=== PATIENT | female | born 1965 | race American Indian/Alaskan Native ===

== ENCOUNTER 2017-04-23 10:19 | Inpatient (IN) | payer MEDICAID ==
[2017-04-23 10:53] LABS: Basophils % (Auto) 0.7 % (0.0-1.8); Eosinophils % (Auto) 2.3 % (0.0-4.3); Hematocrit 40.5 % (30.3-42.9); Hemoglobin 13.4 gm/dl (10.1-14.3); Mean Corpuscular HGB Conc 33 % (30-34); Mean Corpuscular Hemoglobin 27 pg (28-32); Mean Corpuscular Volume 82 fl (79-97); Platelet Count 260 K/mm3 (140-440); Red Blood Count 4.91 M/mm3 (3.65-5.03); Red Cell Distribution Width 14.3 % (13.2-15.2)
[2017-04-23 11:13] LABS: Alanine Aminotransferase 16 units/L (7-56); Albumin 3.8 g/dL (3.9-5); Albumin/Globulin Ratio 1.1 %; Alkaline Phosphatase 81 units/L (35-129); Amylase 58 units/L (27-131); Anion Gap 20 mmol/L; Blood Urea Nitrogen 15 mg/dL (7-17); Calcium 9.4 mg/dL (8.4-10.2); Carbon Dioxide 22 mmol/L (22-30); Chloride 99.3 mmol/L (98-107); Glucose 126 mg/dL (65-100); Lipase 58 units/L (13-60); Potassium 3.8 mmol/L (3.6-5.0); Sodium 137 mmol/L (137-145); Total Protein 7.3 g/dL (6.3-8.2)
[2017-04-23 11:17] LABS: Bilirubin,Direct < 0.2 mg/dL (0-0.2)
[2017-04-23 12:38] LABS: Bilirubin,Urine NEG (Negative); Blood,Urine SM (Negative); Ketones,Urine NEG (Negative); Leukocyte Esterase,Urine NEG (Negative); Mucus,Urine FEW /HPF; Nitrite,Urine NEG (Negative); Protein,Urine <15 mg/dL mg/dL (Negative); Urobilinogen,Urine < 2.0 mg/dL (<2.0)
--- NOTE | 2017-04-23 14:55 | Emergency Department Report ---
ED Abdominal Pain HPI - General Chief Complaint: Abdominal Pain Stated Complaint: CHEST PAIN Time Seen by Provider: 04/23/17 14:49 Source: patient Mode of arrival: Ambulatory Limitations: No Limitations - History of Present Illness Initial Comments: The patient complains of recurrent epigastric pain. She also states she says she has had difficulty in swallowing. She has had previous endoscopies showing gastritis and esophagitis. She has had a previous ultrasound at this facility 2015. The report specifically states that the patient has multiple gallstones and a dilated common bile duct without choledocholithiasis. Patient has never followed up with a surgeon. She states that she is nauseated but has not been vomiting. Has not been any signs of GI bleeding nor fever or chills. MD Complaint: abdominal pain -: Gradual Location: epigastric Radiation: none Migration to: no migration Severity: moderate Severity scale (0 -10): 7 Quality: aching Consistency: constant Improves With: nothing Worsens With: nothing Associated Symptoms: denies other symptoms, nausea. denies: vomiting, diarrhea , fever, chills, constipation, dysuria, hematemesis, hematochezia - Related Data Home Medications Medication Instructions Recorded Confirmed Last Taken Colchicine 0.6 mg PO DAILY 04/23/17 04/23/17 Unknown Simvastatin [Zocor TAB] 20 mg PO QHS 04/23/17 04/23/17 Unknown Valsartan [Diovan] 160 mg PO QDAY 04/23/17 04/23/17 Unknown Allergies Allergy/AdvReac Type Severity Reaction Status Date / Time tramadol Allergy Shortness Verified 08/11/15 09:50 of Breath ED Review of Systems ROS: Stated complaint: CHEST PAIN Other details as noted in HPI Constitutional: denies: chills, fever Eyes: denies: eye pain, eye discharge, vision change ENT: denies: ear pain, throat pain Respiratory: denies: cough, shortness of breath, wheezing Cardiovascular: denies: chest pain, palpitations Endocrine: no symptoms reported Gastrointestinal: abdominal pain, nausea. denies: diarrhea Genitourinary: denies: urgency, dysuria, discharge Musculoskeletal: denies: back pain, joint swelling, arthralgia Skin: denies: rash, lesions Neurological: denies: headache, weakness, paresthesias Psychiatric: denies: anxiety, depression Hematological/Lymphatic: denies: easy bleeding, easy bruising ED Past Medical Hx - Past Medical History Previous Medical History?: Yes Hx Hypertension: Yes Hx GERD: Yes Hx Renal Disease: No Hx Arthritis: Yes Hx Headaches / Migraines: Yes (MIGRAINES) Additional medical history: hx of pancreatitis - Surgical History Past Surgical History?: Yes Additional Surgical History: abdominal sx 1999. x2 - Social History Smoking Status: Never Smoker Substance Use Type: None, Alcohol - Medications Home Medications: Home Medications Medication Instructions Recorded Confirmed Last Taken Type Colchicine 0.6 mg PO DAILY 04/23/17 04/23/17 Unknown History Simvastatin [Zocor TAB] 20 mg PO QHS 04/23/17 04/23/17 Unknown History Valsartan [Diovan] 160 mg PO QDAY 04/23/17 04/23/17 Unknown History ED Physical Exam - General Limitations: No Limitations General appearance: alert, in no apparent distress - Head Head exam: Present: atraumatic, normocephalic - Eye Eye exam: Present: normal appearance - ENT ENT exam: Present: normal exam, mucous membranes moist - Neck Neck exam: Present: normal inspection. Absent: tenderness, meningismus - Respiratory Respiratory exam: Present: normal lung sounds bilaterally. Absent: respiratory distress - Cardiovascular Cardiovascular Exam: Present: regular rate, normal rhythm. Absent: systolic murmur, diastolic murmur, rubs, gallop - GI/Abdominal GI/Abdominal exam: Present: soft, tenderness (tenderness in the epigastric area and somewhat towards the right upper quadrant. There is no grossly positive Ellis's), guarding (Some voluntary guarding is noted), normal bowel sounds. Absent: distended, rebound, rigid - Extremities Exam Extremities exam: Present: normal inspection - Back Exam Back exam: Present: normal inspection - Neurological Exam Neurological exam: Present: alert, oriented X3, CN II-XII intact. Absent: motor sensory deficit - Psychiatric Psychiatric exam: Present: normal affect, anxious - Skin Skin exam: Present: warm, dry, intact, normal color. Absent: rash ED Course Vital Signs 04/23/17 04/23/17 04/23/17 10:33 12:37 12:47 Temperature 98.5 F Pulse Rate 85 73 Respiratory 17 Rate Blood Pressure 145/87 Blood Pressure 106/72 [Right] O2 Sat by Pulse 100 97 99 Oximetry 04/23/17 04/23/17 04/23/17 13:00 13:30 14:00 Temperature Pulse Rate Respiratory Rate Blood Pressure 122/65 118/66 115/73 Blood Pressure [Right] O2 Sat by Pulse 95 97 97 Oximetry 04/23/17 04/23/17 04/23/17 14:30 15:45 16:15 Temperature Pulse Rate Respiratory 18 18 Rate Blood Pressure 131/70 Blood Pressure [Right] O2 Sat by Pulse 97 Oximetry 04/23/17 17:09 Temperature Pulse Rate 70 Respiratory 18 Rate Blood Pressure Blood Pressure 126/84 [Right] O2 Sat by Pulse 97 Oximetry - Reevaluation(s) Reevaluation #1: The patient was referred to Dr. Vega for evaluation. The ultrasound report was pending at that time. Dr. Vega mentioned the value of a HIDA scan which I have ordered for him. He saw the patient and admitted her to the hospital for further evaluation. Apparently there is a discrepancy between the 2006 ultrasound showing multiple gallstones and the normal reading at this time. I spoke to the [facility] radiologist concerning this. I gave them Dr. Vega's number. She stated that she would review the prior report and get back to Gary and with her opinion regarding the discrepancy. In any case the patient is admitted for her acute abdominal pain pending further evaluation by the surgeon. 04/23/17 18:19 ED Medical Decision Making - Lab Data Result diagrams: 04/23/17 10:40 04/23/17 10:40 Laboratory Results - last 24 hr 04/23/17 04/23/17 04/23/17 10:40 10:40 10:44 WBC 7.0 RBC 4.91 Hgb 13.4 Hct 40.5 MCV 82 MCH 27 L MCHC 33 RDW 14.3 Plt Count 260 Lymph % (Auto) 38.8 H [place] % (Auto) 7.1 Eos % (Auto) 2.3 Baso % (Auto) 0.7 Lymph # 2.7 [place] # 0.5 Eos # 0.2 Baso # 0.1 Seg Neutrophils % 51.1 Seg Neutrophils # 3.6 Sodium 137 Potassium 3.8 Chloride 99.3 Carbon Dioxide 22 Anion Gap 20 BUN 15 Creatinine 1.0 Estimated GFR > 60 BUN/Creatinine Ratio 15.00 Glucose 126 H Calcium 9.4 Total Bilirubin 0.20 Direct Bilirubin < 0.2 AST 15 ALT 16 Alkaline Phosphatase 81 Troponin T < 0.010 Total Protein 7.3 Albumin 3.8 L Albumin/Globulin Ratio 1.1 Amylase 58 Lipase 58 Urine Color Urine Turbidity Urine pH Ur Specific [place] Urine Protein Urine Glucose (UA) Urine Ketones Urine Blood Urine Nitrite Urine Bilirubin Urine Urobilinogen Ur Leukocyte Esterase Urine WBC (Auto) Urine RBC (Auto) U Epithel Cells (Auto) Urine Mucus 04/23/17 12:30 WBC RBC Hgb Hct MCV MCH MCHC RDW Plt Count Lymph % (Auto) [place] % (Auto) Eos % (Auto) Baso % (Auto) Lymph # [place] # Eos # Baso # Seg Neutrophils % Seg Neutrophils # Sodium Potassium Chloride Carbon Dioxide Anion Gap BUN Creatinine Estimated GFR BUN/Creatinine Ratio Glucose Calcium Total Bilirubin Direct Bilirubin AST ALT Alkaline Phosphatase Troponin T Total Protein Albumin Albumin/Globulin Ratio Amylase Lipase Urine Color Yellow Urine Turbidity Clear Urine pH 5.0 Ur Specific [place] 1.023 Urine Protein <15 mg/dl Urine Glucose (UA) Neg Urine Ketones Neg Urine Blood Sm Urine Nitrite Neg Urine Bilirubin Neg Urine Urobilinogen < 2.0 Ur Leukocyte Esterase Neg Urine WBC (Auto) 2.0 Urine RBC (Auto) 4.0 U Epithel Cells (Auto) 2.0 Urine Mucus Few Critical care attestation.: If time is entered above; I have spent that time in minutes in the direct care of this critically ill patient, excluding procedure time. ED Disposition Clinical Impression: Acute abdominal pain Disposition: OP ADMIT IP TO THIS HOSP Is pt being admited?: Yes Does the pt Need Aspirin: No Condition: Stable Time of Disposition: 18:30
[2017-04-23] MEDS ORDERED: ZOFRAN IV ONE (15:14)
[2017-04-23] MEDS ORDERED: MORPHINE IV ONE (15:14)
[2017-04-23] MEDS ORDERED: PEPCID IV ONE (15:15)
[2017-04-23] MEDS ORDERED: NACL 0.9% 1000 ML 1,000 ML IV ONE (15:16)
--- NOTE | 2017-04-23 16:40 | Ultrasound Report ---
FINAL REPORT EXAM: US ABDOMEN LIMITED HISTORY: ABD pain biliary colic? TECHNIQUE: Sonography of the right upper quadrant abdomen was performed. PRIORS: 03/10/2016 FINDINGS: No focal liver lesions are seen. There is no intra- or extrahepatic biliary dilatation. CBD is 6 mm. The gallbladder is normal - without cholelithiais, wall thickening, or pericholecystic fluid. For the visualized pancreas is unremarkable. There is no right hydronephrosis. IMPRESSION: Unremarkable ultrasound of the right upper quadrant.
[2017-04-23] MEDS ORDERED: ZOSYN/NS 4.5GM/100ML 4.5 GM/100 ML VIAL IV ONE (18:00)
--- NOTE | 2017-04-23 18:40 | History and Physical Report ---
HISTORY OF PRESENT ILLNESS: This patient was seen in the Emergency Room today because of severe pain to the epigastric area with severe nausea, but no vomiting. She related to me that she had the same about ____ ago, she was seen here and she was found to have stones in the gallbladder. For some reason, she did not pursue that further and this time, the pain was much worse. As mentioned above, she has nausea, but no vomiting. The pain was well localized in the mid upper epigastric area, more to the right side. She never had surgery before. I believe she had 2 sections. The patient does not smoke nor does she drink alcohol. She works ____. PHYSICAL EXAMINATION: HEAD AND EYE: Negative. CHEST: Clear. HEART: Sounds normal. ABDOMEN: Protuberant, soft, benign. Severe tenderness, however, in the mid upper epigastrium to the right side with well localized of the subcostal area of the right side. EXTREMITIES: Showed no significant no edema. IMPRESSION: Gallbladder disease with stones seen on the sonogram. We will need to pursue that on the HIDA scan and I did indicate to her that she would need most probably an operation. We will go from there. In the meantime, we will give her some antibiotics. JOB# [id number] SARAH/WM
[2017-04-23] MEDS ORDERED: HEPARIN SUB-Q ONE (21:46)
[2017-04-23 22:50] LABS: Alanine Aminotransferase 15 units/L (7-56); Albumin 3.7 g/dL (3.9-5); Albumin/Globulin Ratio 1.2 %; Alkaline Phosphatase 71 units/L (35-129); Total Protein 6.9 g/dL (6.3-8.2)
[2017-04-23 22:52] LABS: Bilirubin,Direct < 0.2 mg/dL (0-0.2); Bilirubin,Indirect 0.1 mg/dL
[2017-04-23] MEDS: D5W/0.45% NACL/KCL 20 MEQ 20 MEQ/1,000 ML BAG IV SCH (23:43)
--- NOTE | 2017-04-24 00:51 | Admit Criteria Form ---
Admission Criteria Documentation: ABDOMINAL PAIN Clinical Indications for Admission to Inpatient Care ( alutiiq/check or initial the applicable condition/criteria): Admission is indicated for ANY ONE of the following (1)(2)(3)(4)(5)(6): [ ]I. Surgery needed that cannot be performed on ambulatory basis [ ]II. Peritoneal signs present (eg, rebound tenderness, rigidity) [ ]III. Evaluation requires patient to not eat or drink for extended period ( eg, more than 24 hours). [X]IV. Inpatient admission required[B] rather than observation care (see Abdominal Pain: Observation Care guideline as appropriate) because of ANY ONE of the following(7)(8)(9): [ ] a) Hemodynamic instability [ ]b) Severe pain requiring acute inpatient management [X]c) Identification of etiology or finding that requires inpatient care (eg, aortic dissection, free air,bowel ischemia)(10) [ ]d) Absent bowel sounds with complete ileus (11) [ ]e) Signs of intestinal obstruction[C] [ ]f) Suspected toxic megacolon [ ]g) Severe electrolyte abnormalities requiring inpatient care [ ]h) High fever or infection requiring inpatient admission as indicated by ANY ONE of the following (12)(13): [ ]i) Appropriate outpatient or observation care antimicrobial treatment unavailable, not effective, or not feasible [ ]ii) Documented bacteremia [ ]iii) Temperature greater than 104.9 degrees F (40.5 degrees C) (oral) [ ]iv) Temperature greater than 103.1 degrees F (39.5 degrees C) ( oral) or less than 96.8 degrees F (36 degrees C) (rectal) that does not respond to all emergency treatment measures [ ]i) IV fluid required rather than oral rehydration to replace significant ongoing (eg, for greater than 24 hours) losses (greater than 3 L/m2 per day)(14)(15) [ ]j) Percutaneous or open drainage (eg, abscess, biliary tract) procedures [ ]k) Parenteral nutrition regimen that must be implemented on inpatient basis [ ]l) Other condition, treatment, or monitoring requiring inpatient admission Extended stay beyond goal length of stay may be needed for (1)(3)(4)(10)(16): [ ]a) Surgery (e.g., colectomy, revascularization procedure) [ ]b) Persistent abdominal pain with suspected intra-abdominal process [ ]c) Diagnosed condition requiring continued stay (e.g., pancreatitis, complicated diverticulitis) The original [facility] Provade content created by [facility] has been revised. The portions of the content which have been revised are identified through the use of italic text or in bold, and [facility] has neither reviewed nor approved the modified material.All other unmodified content is copyright [facility]. Please see references footnoted in the original [facility] edition 2017 Admission Criteria Met: Yes
[2017-04-24 06:22] LABS: Alanine Aminotransferase 14 units/L (7-56); Albumin 3.2 g/dL (3.9-5); Alkaline Phosphatase 61 units/L (35-129); Total Protein 6.3 g/dL (6.3-8.2)
[2017-04-24 06:28] LABS: Bilirubin,Direct < 0.2 mg/dL (0-0.2)
[2017-04-24] MEDS ORDERED: KINEVAC IV ONE ×2 (08:54→08:56)
[2017-04-24] MEDS ORDERED: WATER FOR INJ (PF) 10 ML ONE (08:56)
[2017-04-24] MEDS ORDERED: WATER FOR INJ (PF) IV SCH (09:00)
[2017-04-24] MEDS: D5W/0.45% NACL/KCL 20 MEQ 20 MEQ/1,000 ML BAG IV SCH ×2 (10:20→22:16)
--- NOTE | 2017-04-24 10:26 | Nuclear Medicine Report ---
HIDA WITH CCK INDICATION: Right upper quadrant pain x 1 year. Nausea, pain. COMPARISON: None similar. FINDINGS: Dynamic right upper quadrant imaging performed in the anterior projection over 60 minutes following uneventful intravenous administration of 5 mCi of Technetium 99m Choletec. Prompt and homogenous hepatic radiotracer uptake with subsequent washout seen with gallbladder activity noted at 10 minutes and bowel activity seen conclusively at 60 minutes. Subsequently, 2 mcg of cholecystokinin infused intravenously over a period of 3 minutes with patient experiencing pain, though of different intensity. The calculated ejection fraction is 19% (normal greater than 35%). CONCLUSION: Biliary dyskinesia with gallbladder ejection fraction of 19% and patient experiencing different pain characteristic following CCK, as described. Please correlate. Thank you for the opportunity to participate in this patient's care.
[2017-04-24] MEDS ORDERED: MARCAINE 0.5% 30 ML INFILTRATI ONE (12:04)
[2017-04-24] MEDS ORDERED: ZOFRAN IV PRN (12:12)
[2017-04-24] MEDS ORDERED: DILAUDID IV PRN (12:12)
--- NOTE | 2017-04-24 12:14 | Anesthesia Day of Surgery ---
Anesthesia Day of Surgery - Day of Surgery Patient Examined: Yes Patient H&P Reviewed: Yes Patient is NPO: Yes
--- NOTE | 2017-04-24 12:20 | Anesthesia Consultation ---
Anesthesia Consult and Med Hx Date of service: 04/24/17 - Airway Anesthetic Teeth Evaluation: Good, Partials (UPPER) ROM Head & Neck: Adequate Mental/Hyoid Distance: Adequate Mallampati Class: Class II Intubation Access Assessment: Probably Good - Pulmonary Exam CTA: Yes - Cardiac Exam Cardiac Exam: RRR - Pre-Operative Health Status ASA Pre-Surgery Classification: ASA3 Proposed Anesthetic Plan: General - Pulmonary Hx Smoking: No Hx Asthma: No COPD: No Hx Pneumonia: No Hx Sleep Apnea: No - Cardiovascular System Hx Hypertension: Yes Hx Coronary Artery Disease: No Hx Heart Attack/AMI: No Hx Angina: No Hx Valvular Heart Disease: No Hx Peripheral Vascular Disease: No - Central Nervous System CVA: No Hx Back Pain: Yes Hx Psychiatric Problems: No - Endocrine Hx Renal Disease: No (STONES) Hx End Stage Renal Disease: No Hx Cirrhosis: No Hx Insulin Dependent Diabetes: No Hx Hypothyroidism: No Hx Hyperthyroidism: No - Hematic Hx Anemia: No - Other Systems Hx Obesity: Yes (BMI 40) - Additional Comments Anesthesia Medical History Comments: HAD MEMORY LOSS AFTER WHICH SHE SAYS IS ANESTHESIA RELATED
[2017-04-24] MEDS ORDERED: XYLOCAINE MPF 2% ONE (12:25)
[2017-04-24] MEDS ORDERED: ZOFRAN ONE (12:25)
[2017-04-24] MEDS ORDERED: ZEMURON IV ONE (12:25)
[2017-04-24] MEDS ORDERED: SUBLIMAZE ONE (12:26)
[2017-04-24] MEDS ORDERED: DIPRIVAN 10 MG/ML IV ONE (12:26)
[2017-04-24] MEDS ORDERED: VERSED IV NR (13:00)
[2017-04-24] MEDS ORDERED: NACL 0.9% 1000 ML 1,000 ML IV SCH (13:00)
[2017-04-24] MEDS ORDERED: ANCEF/STERILE WATER 2 GM/20 ML IV NR (13:00)
[2017-04-24] MEDS ORDERED: PEPCID IV NR (13:00)
[2017-04-24] MEDS ORDERED: ROBINUL ONE ×2 (13:27→13:47)
[2017-04-24] MEDS ORDERED: NACL 0.9% IR ONE (13:30)
[2017-04-24] MEDS ORDERED: MARCAINE 0.5% INFILTRATI ONE ×2 (13:31)
[2017-04-24] MEDS ORDERED: NEOSTIGMINE ONE (13:47)
[2017-04-24] MEDS ORDERED: DECADRON ONE (13:56)
[2017-04-24] MEDS ORDERED: NEO SYNEPHRINE/NS Syringe(OR USE) IV ONE (14:00)
[2017-04-24] MEDS ORDERED: DILAUDID ONE ×2 (14:01→14:03)
[2017-04-24] MEDS ORDERED: NACL 0.9% 1000 ML 1,000 ML ONE (14:04)
--- NOTE | 2017-04-24 15:47 | Post Anesthesia Evaluation ---
- Post Anesthesia Evaluation Patient Participated: Yes Airway Patent: Yes Stable Respiratory Function: Yes Nausea/Vomiting: No Temp > 96.8F: Yes Pain Manageable: Yes Adequeate Hydration: Yes Anesthesia Complications: No Block Receding Appropriately: Not Applicable Patient on Ventilator: No
[2017-04-24] MEDS ORDERED: AMBIEN PO PRN (20:06)
--- NOTE | 2017-04-24 20:38 | Operative Report ---
PREOPERATIVE DIAGNOSIS: Gallbladder disease with acalculous cholecystitis. POSTOPERATIVE DIAGNOSIS: Gallbladder disease with acalculous cholecystitis. SURGERY: Cholecystectomy, laparoscopic. ANESTHESIA: General. BLOOD LOSS: Minimal. FINDINGS: The patient had a secondary wall of the gallbladder and there was lots of adhesions between it and the surrounding structures. I had to dissect this free. The gallbladder looked edematous to me. It contained lots of bile. I could not see any stones there. DESCRIPTION OF PROCEDURE: With the patient in supine position, prepped and draped in usual fashion, I made an incision in the right upper quadrant for the Veress needle. I was able to introduce CO2 pressure of 15 for which #5 trocar was inserted. Then, with the camera 5, I was able to introduce 3 more trocars under local anesthesia. One in the right upper quadrant, one in the supraumbilical area #5 and #10 in the mid upper epigastrium to the right side. The gallbladder as mentioned above was thick and it had lots of adhesions. These were lysed slowly in the usual fashion where a grasper was applied at its fundus and infundibular area. Then, the remainder of the cystic duct, I was able to isolate the cystic duct and cystic artery. These were small, barely about 1 mm each. These were Endo clipped and transected and the gallbladder was removed in toto using electrocautery in the usual fashion. The gallbladder was then removed via EndoCatch in the usual fashion. We had good hemostasis. The area was then irrigated thoroughly with normal saline. Then, all the trocars were removed, closing the fascia with use of 0 Vicryl [id number] x 2 and the skin with 4-0 Vicryl and a seal, glue. The patient was then transferred to the recovery room in good condition. JOB# [id number] SARAH/WM
[2017-04-24] MEDS: MORPHINE IV PRN (20:48)
[2017-04-24] MEDS: DELTASONE PO SCH (22:16)
[2017-04-24] MEDS: ZOFRAN IV PRN (22:21)
[2017-04-25] MEDS: MORPHINE IV PRN (08:01)
[2017-04-25] MEDS: ZOFRAN IV PRN (08:08)
[2017-04-25 08:51] VITALS: BP 146/84
[2017-04-25] MEDS: DELTASONE PO SCH (09:16)
[2017-04-25 09:26] LABS: Alanine Aminotransferase 47 units/L (7-56); Albumin 3.7 g/dL (3.9-5); Albumin/Globulin Ratio 1.1 %; Alkaline Phosphatase 69 units/L (35-129)
[2017-04-25 09:27] LABS: Bilirubin,Direct < 0.2 mg/dL (0-0.2)
--- NOTE | 2017-04-25 13:39 | Progress Note ---
Subjective Narrative: doing fine home today on phenergan and percocet Objective Vital Signs - 12hr 04/25/17 04/25/17 04/25/17 03:45 08:00 08:01 Temperature 98.2 F 99.2 F Pulse Rate 73 77 Respiratory 20 18 20 Rate Respiratory 20 Rate [Bilateral Abdomen] Blood Pressure 128/76 146/84 O2 Sat by Pulse 96 97 Oximetry 04/25/17 08:31 Temperature Pulse Rate Respiratory 18 Rate Respiratory Rate [Bilateral Abdomen] Blood Pressure O2 Sat by Pulse Oximetry - Labs 04/23/17 10:40 04/23/17 10:40 Diabetes panel 04/25/17 Range/Units 08:39 AST 56 H (5-40) units/L ALT 47 (7-56) units/L Alkaline Phosphatase 69 (35-129) units/L Total Protein 7.0 (6.3-8.2) g/dL Albumin 3.7 L (3.9-5) g/dL Calcium panel 04/25/17 Range/Units 08:39 Albumin 3.7 L (3.9-5) g/dL Adrenal panel 04/25/17 Range/Units 08:39 Total Bilirubin 0.30 (0.1-1.2) mg/dL AST 56 H (5-40) units/L ALT 47 (7-56) units/L Alkaline Phosphatase 69 (35-129) units/L Total Protein 7.0 (6.3-8.2) g/dL Albumin 3.7 L (3.9-5) g/dL
--- NOTE | 2017-04-26 21:36 | Discharge Summary ---
FINAL DIAGNOSES: 1. Acalculous cholecystitis? 2. Esophagitis? HOSPITAL COURSE: This patient was seen in the ER last year ____ because of severe pain throughout the right upper quadrant. She was found to have a stone in the gallbladder last year. At this time, the pain was very severe and prompted her to be seen in the Emergency Room. We had a HIDA scan on her that showed 19% ejection fraction. The patient is on prednisone for rheumatoid arthritis. PHYSICAL EXAMINATION: GENERAL: Well-preserved and short statured black female. She is in pain to the right upper quadrant. HEAD AND NECK: Negative. CHEST: Clear. HEART: Sound normal. ABDOMEN: Showed severe tenderness in the right upper quadrant area. The patient was taken to the operating room the next day where she underwent laparoscopic cholecystectomy. She was found to have gallbladder was with lots of adhesions in the area. Postoperatively, the next day, she was doing fine. At that time, she was discharged home to be seen in my office in 2 weeks, she was given analgesia for pain Vicodin and she is to continue her prednisone at home. ____ path report. JOB# [id number] SARAH/WM
== END 2017-04-25 14:30 | disposition home or self-care (01) | DRG 418 ==
LOC: ED 10:19 → 3A 16:56 → 2B-SURG 19:51 → OBSVTOIN 04-24 12:05
PROVIDERS: ADMIT Surgery; ATTEND Surgery
PROC: 0FT44ZZ Resection of Gallbladder, Percutaneous Endoscopic Approach (ICD-10-PCS; principal; 2017-04-24)
DX: K81.0 Acute cholecystitis (principal); Z68.41 Body mass index [BMI] 40.0-44.9, adult; E66.01 Morbid (severe) obesity due to excess calories; Z88.8 Allergy status to other drugs, medicaments and biological substances; I10 Essential (primary) hypertension; K21.9 Gastro-esophageal reflux disease without esophagitis; M06.9 Rheumatoid arthritis, unspecified; K82.8 Other specified diseases of gallbladder
CPT/HCPCS: 36415; 76705; 78227; 80053; 80074; 81001; 82150; 83690; 84484; 85025; 88304; 93005; 93010; 96361; 96365; 96375; A9537; G0378; J0690; J1100; J1170; J1644; J2270; J2370; J2405; J2543; J2704; J2710; J2805; J3010; J7030; J7512

== ENCOUNTER 2018-08-31 23:05 | Emergency (ER) | payer MEDICAID, SELFPAY ==
--- NOTE | 2018-09-01 | XRay Report ---
FINAL REPORT PROCEDURE: XR FINGER(S) 2+V LT TECHNIQUE: LEFT index finger radiographs, including AP, lateral, and oblique views. HISTORY: jammed left index finger-pain and swelling COMPARISON: No prior studies are available for comparison. FINDINGS: Fracture (s) and/or Dislocation(s): None . Alignment: Normal. Joint space(s): Mild narrowing of the joint spaces. Soft tissues: Normal . Bone mineralization: Normal . Foreign bodies: None . IMPRESSION: No evidence of an acute fracture
--- NOTE | 2018-09-01 07:22 | Emergency Department Report ---
ED Upper Extremity Inj HPI - General Chief Complaint: Extremity Injury, Upper Stated Complaint: FINGER PAIN/SWELLING Time Seen by Provider: 09/01/18 06:50 Source: patient Mode of arrival: Ambulatory Limitations: No Limitations - History of Present Illness Initial Comments: There is a 53-year-old -[place] female who presents for paronychia left index finger states she gotten press on those 2 days ago and hit a nail on the car door pain and throbbing sets R she does not want nail removed I have advised the patient we will attempt a side approach however the paronychia versus felon is not relieved will have to take nail off. pain is 5/10 throbbing aching pain is relieved by nothing pain is exacerbated by palpation and movement. Complaint: Injury to:: left Onset/Timin -: days(s) ( positive) Other Extremity Injury: Fingers: Left (index ) Other Injuries: none (mode) Handedness: right Place: home Severity scale (0 -10): 5 Improves With: none Worsens With: movement of extremity (1), other (palpation ) Context: other (artificial nail gun abdomen was) - Related Data Home Medications Medication Instructions Recorded Confirmed Last Taken Colchicine 0.6 mg PO DAILY 04/23/17 04/23/17 Unknown Simvastatin [Zocor TAB] 20 mg PO QHS 04/23/17 04/23/17 Unknown Valsartan [Diovan] 160 mg PO QDAY 04/23/17 04/23/17 Unknown Previous Rx's Medication Instructions Recorded Last Taken Type Acetaminophen [Tylenol Extra 1,000 mg PO QID PRN #30 tablet 09/01/18 Unknown Rx Strength] Cephalexin [Keflex] 500 mg PO TID 10 Days #30 capsule 09/01/18 Unknown Rx Menthol/Camphor [Beasley Victoria 1 applicatio TP QID PRN #1 tube 09/01/18 Unknown Rx Ointment] Allergies Allergy/AdvReac Type Severity Reaction Status Date / Time tramadol Allergy Shortness Verified 08/11/15 09:50 of Breath hydrocodone AdvReac Shortness Verified 04/24/17 11:37 of Breath NSAIDS (Non-Steroidal AdvReac gi upset Verified 04/24/17 11:37 Anti-Inflamma ED Review of Systems ROS: Stated complaint: FINGER PAIN/SWELLING Other details as noted in HPI Constitutional: denies: chills, fever Eyes: denies: eye pain, eye discharge, vision change ENT: denies: ear pain, throat pain Respiratory: denies: cough, shortness of breath, wheezing Cardiovascular: denies: chest pain, palpitations Endocrine: no symptoms reported Gastrointestinal: denies: abdominal pain, nausea, diarrhea Genitourinary: denies: urgency, dysuria, discharge Musculoskeletal: joint swelling, other (left index paronychia ) Skin: denies: rash, lesions Neurological: denies: headache, weakness, paresthesias Psychiatric: denies: anxiety, depression Hematological/Lymphatic: denies: easy bleeding, easy bruising ED Past Medical Hx - Past Medical History Previous Medical History?: Yes Hx Hypertension: Yes Hx Heart Attack/AMI: No Hx Congestive Heart Failure: No Hx Diabetes: No Hx Deep Vein Thrombosis: No Hx Pulmonary Embolism: No Hx GERD: Yes Hx Renal Disease: No (STONES) Hx Arthritis: Yes Hx Headaches / Migraines: Yes (MIGRAINES) Hx Asthma: No Hx COPD: No Hx Dementia: No Additional medical history: hx of pancreatitis - Surgical History Past Surgical History?: Yes Hx Open Heart Surgery: No Hx Breast Surgery: No Additional Surgical History: abdominal sx 1999. x2 - Social History Smoking Status: Never Smoker Substance Use Type: Alcohol - Medications Home Medications: Home Medications Medication Instructions Recorded Confirmed Last Taken Type Colchicine 0.6 mg PO DAILY 04/23/17 04/23/17 Unknown History Simvastatin [Zocor TAB] 20 mg PO QHS 04/23/17 04/23/17 Unknown History Valsartan [Diovan] 160 mg PO QDAY 04/23/17 04/23/17 Unknown History Acetaminophen [Tylenol Extra 1,000 mg PO QID PRN #30 tablet 09/01/18 Unknown Rx Strength] Cephalexin [Keflex] 500 mg PO TID 10 Days #30 capsule 09/01/18 Unknown Rx Menthol/Camphor [Beasley Victoria 1 applicatio TP QID PRN #1 tube 09/01/18 Unknown Rx Ointment] ED Physical Exam - General Limitations: No Limitations General appearance: alert, in no apparent distress - Head Head exam: Present: atraumatic, normocephalic - Eye Eye exam: Present: normal appearance - ENT ENT exam: Present: mucous membranes moist. Absent: normal exam - Neck Neck exam: Present: normal inspection - Respiratory Respiratory exam: Present: normal lung sounds bilaterally. Absent: respiratory distress - Cardiovascular Cardiovascular Exam: Present: regular rate, normal rhythm. Absent: systolic m urmur, diastolic murmur, rubs, gallop - GI/Abdominal GI/Abdominal exam: Present: soft, normal bowel sounds - Rectal Rectal exam: Present: deferred - Extremities Exam Extremities exam: Present: full ROM, tenderness (left index distal erythema swelling ), normal capillary refill, joint swelling - Expanded Upper Extremity Exam Left Hand Wrist exam: Present: tenderness, swelling, erythema, other (paronychia ) Neuro motor exam: Present: wrist extension intact, thumb opposition intact, thumb IP flexion intact ( is here as), thumb adduction intact ( those a lot again is), fingers 2-5 abduction intact Neurosensory exam: Present: 2-point discrimination, radial nerve intact, ulnar nerve intact, median nerve intact (A Catrina is) Vascular: Present: normal capillary refill, radial pulse, brachial pulse, ulnar pulse. Absent: pulse deficit radial art, pulse deficit ulnar art, pulse deficit brachial art - Back Exam Back exam: Present: normal inspection, full ROM, tenderness - Neurological Exam Neurological exam: Present: alert, oriented X3, CN II-XII intact, normal gait, reflexes normal - Psychiatric Psychiatric exam: Present: normal affect, normal mood - Skin Skin exam: Present: warm, dry, normal color. Absent: rash ED Course Vital Signs 08/31/18 09/01/18 23:29 05:37 Temperature 98.8 F 98.1 F Pulse Rate 79 71 Respiratory 20 20 Rate Blood Pressure 159/89 Blood Pressure 163/95 [Right] O2 Sat by Pulse 94 99 Oximetry - I & D Left Finger Type of Procedure: Simple Site: index finger paroncychia Blade Size: 11 I & D Procedure: betadine prep Progress: Left index finger paronychia . The patient anesthesia 1% lidocaine plain . Digital block is a 11 blade subcutaneous purulent output moderate moderate amount irrigated saline solution cleaned with Betadine prep and sterile dressing applied all bleeding is controlled pressure throbbing is relieved patient tolerated procedures were minimal distress patient given wound care instructions was understanding and agreement with same Critical care attestation.: If time is entered above; I have spent that time in minutes in the direct care of this critically ill patient, excluding procedure time. ED Disposition Clinical Impression: Paronychia of left index finger Disposition: DC- TO HOME OR SELFCARE Is pt being admited?: No Does the pt Need Aspirin: No Condition: Stable Instructions: Paronychia (ED) Prescriptions: Acetaminophen [Tylenol Extra Strength] 1,000 mg PO QID PRN #30 tablet PRN Reason: pain Cephalexin [Keflex] 500 mg PO TID 10 Days #30 capsule Menthol/Camphor [Beasley Victoria Ointment] 1 applicatio TP QID PRN #1 tube PRN Reason: pain Referrals: ABIGAIL DIXON MD [Primary Care Provider] - 3-5 Days Forms: Work/School Release Form(ED) Time of Disposition: 07:30
[2018-09-01 07:54] VITALS: BP 170/98
== END 2018-09-01 08:03 | disposition home or self-care (01) ==
LOC: ED 23:05
DX: L03.012 Cellulitis of left finger (principal); I10 Essential (primary) hypertension; K21.9 Gastro-esophageal reflux disease without esophagitis; M19.90 Unspecified osteoarthritis, unspecified site; G43.909 Migraine, unspecified, not intractable, without status migrainosus; Z88.6 Allergy status to analgesic agent; Z88.8 Allergy status to other drugs, medicaments and biological substances
CPT/HCPCS: 99283

== ENCOUNTER 2018-11-28 09:13 | Outpatient (CLI) | payer MEDICAID ==
--- NOTE | 2018-11-29 08:28 | Vascular Lab Report ---
PROCEDURE: VL RENAL VASCULATURE TECHNIQUE: Renal artery duplex Doppler ultrasound. Grayscale, color flow and spectral waveform imagi ng performed. HISTORY: BILATERAL RENAL ARTERY SCAN COMPARISON: None FINDINGS: Examination limited and technically difficult due to patient body habitus. Right kidney measures 10.3 cm length. Left kidney measures 10.4 cm length. Aortic flow velocity is 85-99 cm/s. Right renal artery flow velocities are not elevated relative to aortic flow velocities. The renal aor tic ratio on the right is normal, 1.0. Intrarenal resistive index acceptable at 0.71. Left renal artery flow velocities are also not elevated. Left renal aortic ratio is normal, 0.65. Int rarenal resistive index is normal, 0.53. Renal veins are patent bilaterally. IMPRESSION: No Doppler evidence of renal artery stenosis. This document is electronically signed by Rebecca Jones MD., November 29 2018 08:26:17 AM ET
== END 2018-11-28 09:14 | disposition home or self-care (01) ==
LOC: VAS 09:13
PROVIDERS: ATTEND Internal Medicine
DX: I10 Essential (primary) hypertension (principal); E66.9 Obesity, unspecified; K21.9 Gastro-esophageal reflux disease without esophagitis; M19.90 Unspecified osteoarthritis, unspecified site
CPT/HCPCS: 93975

== ENCOUNTER 2019-11-07 09:50 | Emergency (ER) | payer MEDICAID ==
--- NOTE | 2019-11-07 10:54 | Event Note ---
ED Screening Note Date of service: 11/07/19 ED Screening Note: 54 y/o female comes for worsening chest pain. Feels like pressure. Was dx yesterday with pneumonia and placed on meds. This initial assessment/diagnostic orders/clinical plan/treatment(s) is/are subject to change based on patients health status, clinical progression and re- assessment by fellow clinical providers in the ED. Further treatment and workup at subsequent clinical providers discretion. Patient/guardian urged not to elope from the ED as their condition may be serious if not clinically assessed and managed. Initial orders include:
[2019-11-07 11:00] VITALS: BP 137/78
--- NOTE | 2019-11-07 11:17 | XRay Report ---
CHEST 2 VIEWS INDICATION / CLINICAL INFORMATION: sob,cough and rales. COMPARISON: 10/30/2015 FINDINGS: SUPPORT DEVICES: None. HEART / MEDIASTINUM: No significant abnormality. LUNGS / PLEURA: There are bibasilar airspace opacities right greater than left. Upper lung zones are clear. .No pneumothorax. There is mild apical pleural thickening on both sides. ADDITIONAL FINDINGS: No significant additional findings. IMPRESSION: There is bibasilar airspace disease right greater than left. This could represent atelectasis or pneu monia. Signer Name: Amos Kwan MD Signed: 11/07/2019 11:12 AM Workstation Name: [id number]
[2019-11-07 11:59] LABS: Basophils % (Auto) 0.3 % (0.0-1.8); Hematocrit 41.9 % (30.3-42.9); Hemoglobin 13.6 gm/dl (10.1-14.3); Lymphocytes % (Auto) 16.7 % (13.4-35.0); Mean Corpuscular HGB Conc 32 % (30-34); Mean Corpuscular Volume 83 fl (79-97); Monocytes # (Auto) 0.6 K/mm3 (0.0-0.8); Monocytes % (Auto) 9.7 % (0.0-7.3); Platelet Count 315 K/mm3 (140-440); Red Blood Count 5.05 M/mm3 (3.65-5.03); Red Cell Distribution Width 13.6 % (13.2-15.2)
[2019-11-07 12:25] LABS: Alanine Aminotransferase 18 units/L (7-56); Albumin 3.9 g/dL (3.9-5); BUN/Creatinine Ratio 20; Blood Urea Nitrogen 16 mg/dL (7-17); Calcium 9.7 mg/dL (8.4-10.2); Hemolysis Index 0
[2019-11-07] MEDS ORDERED: SODIUM CHLORIDE 0.9% 1000 ML 1,000 ML IV ONE (12:30)
[2019-11-07] MEDS ORDERED: ALBUTEROL 2.5 MG/3 ML NEBU IH ONE (12:30)
--- NOTE | 2019-11-07 12:40 | Emergency Department Report ---
ED General Adult HPI - General Chief complaint: Chest Pain Stated complaint: CP/SOB/WEAKNESS Time Seen by Provider: 11/07/19 10:49 Source: patient Mode of arrival: Ambulatory Limitations: No Limitations - History of Present Illness Initial comments: 54 y/o female comes for worsening chest pain. Feels like pressure. Was dx yesterday with pneumonia and placed on meds. Patient reports that she was clinically diagnosed with pneumonia by her primary care provider and was placed on medication. Patient states that she still has heaviness in her chest. Patient reports he has a history of diabetes. Onset/Timin -: week(s) Location: chest Severity scale (0 -10): 6 Quality: other (Pressure) Consistency: constant Improves with: none Worsens with: none Associated Symptoms: shortness of breath - Related Data Home Medications Medication Instructions Recorded Confirmed Last Taken Simvastatin (Nf) [Zocor TAB] 20 mg PO QHS 04/23/17 11/07/19 Unknown Cholecalciferol (Vitamin D3) 50,000 unit PO QWEEK 11/07/19 11/07/19 Unknown [Vitamin D3 50,000UNIT CAP] Hydralazine HCl 50 mg PO QDAY 11/07/19 11/07/19 Unknown amLODIPine [Norvasc] 10 mg PO DAILY 11/07/19 11/07/19 Unknown levoFLOXacin [Levaquin] 750 mg PO QDAY 11/07/19 11/07/19 Unknown metFORMIN [Glucophage] 500 mg PO BID 11/07/19 11/07/19 Unknown methylPREDNISolone [Medrol 4MG 4 mg PO QDAY 11/07/19 11/07/19 Unknown DOSEPAK (21 tabs)] raNITIdine HCl [Zantac] 300 mg PO QDAY 11/07/19 11/07/19 Unknown Allergies Allergy/AdvReac Type Severity Reaction Status Date / Time tramadol Allergy Shortness Verified 08/11/15 09:50 of Breath hydrocodone AdvReac Shortness Verified 04/24/17 11:37 of Breath NSAIDS (Non-Steroidal AdvReac gi upset Verified 04/24/17 11:37 Anti-Inflamma ED Review of Systems ROS: Stated complaint: CP/SOB/WEAKNESS Other details as noted in HPI Comment: All other systems reviewed and negative ED Past Medical Hx - Past Medical History Hx Hypertension: Yes Hx Heart Attack/AMI: No Hx Congestive Heart Failure: No Hx Diabetes: No Hx Deep Vein Thrombosis: No Hx Pulmonary Embolism: No Hx GERD: Yes Hx Renal Disease: No (STONES) Hx Arthritis: Yes Hx Headaches / Migraines: Yes (MIGRAINES) Hx Asthma: No Hx COPD: No Hx Dementia: No Additional medical history: hx of pancreatitis - Surgical History Hx Open Heart Surgery: No Hx Breast Surgery: No Additional Surgical History: abdominal sx 1999. x2 - Social History Smoking Status: Never Smoker Substance Use Type: Alcohol - Medications Home Medications: Home Medications Medication Instructions Recorded Confirmed Last Taken Type Simvastatin (Nf) [Zocor TAB] 20 mg PO QHS 04/23/17 11/07/19 Unknown History Cholecalciferol (Vitamin D3) 50,000 unit PO QWEEK 11/07/19 11/07/19 Unknown History [Vitamin D3 50,000UNIT CAP] Hydralazine HCl 50 mg PO QDAY 11/07/19 11/07/19 Unknown History amLODIPine [Norvasc] 10 mg PO DAILY 11/07/19 11/07/19 Unknown History levoFLOXacin [Levaquin] 750 mg PO QDAY 11/07/19 11/07/19 Unknown History metFORMIN [Glucophage] 500 mg PO BID 11/07/19 11/07/19 Unknown History methylPREDNISolone [Medrol 4MG 4 mg PO QDAY 11/07/19 11/07/19 Unknown History DOSEPAK (21 tabs)] raNITIdine HCl [Zantac] 300 mg PO QDAY 11/07/19 11/07/19 Unknown History ED Physical Exam - General Limitations: No Limitations General appearance: alert, in no apparent distress - Head Head exam: Present: atraumatic, normocephalic - Eye Eye exam: Present: normal appearance - ENT ENT exam: Present: mucous membranes moist - Neck Neck exam: Present: normal inspection - Respiratory Respiratory exam: Present: normal lung sounds bilaterally. Absent: respiratory distress - Cardiovascular Cardiovascular Exam: Present: regular rate, normal rhythm. Absent: systolic murmur, diastolic murmur, rubs, gallop - GI/Abdominal GI/Abdominal exam: Present: soft, normal bowel sounds - Extremities Exam Extremities exam: Present: normal inspection - Back Exam Back exam: Present: normal inspection - Neurological Exam Neurological exam: Present: alert, oriented X3 - Psychiatric Psychiatric exam: Present: normal affect, normal mood - Skin Skin exam: Present: warm, dry, intact, normal color. Absent: rash ED Course Vital Signs 11/07/19 11/07/19 10:58 13:29 Temperature 98.4 F Pulse Rate 96 H Pulse Rate [ 79 Anterior Bilateral Throughout] Respiratory 22 Rate Respiratory 18 Rate [Anterior Bilateral Throughout] Blood Pressure 137/78 O2 Sat by Pulse 96 Oximetry - Reevaluation(s) Reevaluation #1: 11/07/19 15:13 Patient reports she feels much better after having her breathing treatment and medication. ED Medical Decision Making - Lab Data Result diagrams: 11/07/19 11:40 11/07/19 11:40 - Radiology Data Radiology results: report reviewed Patient: KD CARMONA MR# : [id number] : 1965 Acct:[id number] Age/Sex: 54 / F ADM Date: 11/07/19 Loc: ED Attending Dr: Ordering Physician: AYALA JOHNSON Date of Service: 11/07/19 Procedure(s): XR chest routine 2V Accession Number(s): [id number] cc: AYALA JOHNSON Fluoro Time In Minutes: CHEST 2 VIEWS INDICATION / CLINICAL INFORMATION: sob,cough and rales. COMPARISON: 10/30/2015 FINDINGS: SUPPORT DEVICES: None. HEART / MEDIASTINUM: No significant abnormality. LUNGS / PLEURA: There are bibasilar airspace opacities right greater than left. Upper lung zones are clear. .No pneumothorax. There is mild apical pleural thickening on both sides. ADDITIONAL FINDINGS: No significant additional findings. IMPRESSION: There is bibasilar airspace disease right greater than left. This could represent atelectasis or pneumonia. Signer Name: Amos Kwan MD Signed: 11/07/2019 11:12 AM Workstation Name: [id number] Transcribed By: Dictated By: Amos Kwan MD Electronically Authenticated By: Amos Kwan MD Signed Date/Time: 11/07/19 1112 DD/ 1111 TD/TT: - Medical Decision Making 54 y/o female comes for worsening chest pain. Feels like pressure. Was dx yesterday with pneumonia and placed on meds. Patient reports that she was clinically diagnosed with pneumonia by her primary care provider and was placed on medication. Patient states that she still has heaviness in her chest. Patient reports he has a history of diabetes. Chest x-ray was completed shows some basilar opacity versus pneumonia. Patient placed on albuterol nebulizer treatment, azithromycin 500 mg IV and normal saline 1 1 L IV. Patient be discharged home to continue with antibiotics that her primary care provider gave her and instructions to to use her inhaler every 4-6 hours as needed for shortness of breath. Critical care attestation.: If time is entered above; I have spent that time in minutes in the direct care of this critically ill patient, excluding procedure time. ED Disposition Clinical Impression: Pneumonia Disposition: DC- TO HOME OR SELFCARE Is pt being admited?: No Does the pt Need Aspirin: No Condition: Stable Instructions: Bacterial Pneumonia (ED) Additional Instructions: Continue with antibiotics that your primary care provider continue. Use your inhaler as prescribed by your primary care provider. Follow-up with your primary care provider in the next 3 to 5 days. Take ibuprofen and Tylenol for body aches and fever. Referrals: PRIMARY CARE, [Primary Care Provider] - 3-5 Days Forms: Work/School Release Form(ED)
[2019-11-07] MEDS ORDERED: AZITHROMYCIN 500 MG in SODIUM CHLORIDE 0.9% 250ML 250 ML IV ONE (13:01)
== END 2019-11-07 15:16 | disposition home or self-care (01) ==
LOC: ED 09:50
DX: J18.9 Pneumonia, unspecified organism (principal); I10 Essential (primary) hypertension; K21.9 Gastro-esophageal reflux disease without esophagitis; M19.91 Primary osteoarthritis, unspecified site; G43.909 Migraine, unspecified, not intractable, without status migrainosus; Z98.890 Other specified postprocedural states; Z79.899 Other long term (current) drug therapy; Z88.8 Allergy status to other drugs, medicaments and biological substances
CPT/HCPCS: 36415; 71046; 80053; 85025; 93005; 93010; 94640; 96365; 99284; J0456; J7030; J7050; 94644

== ENCOUNTER 2019-12-07 09:12 | Emergency (ER) | payer MEDICAID ==
[2019-12-07] MEDS ORDERED: SODIUM CHLORIDE 0.9% 1000 ML 1,000 ML IV ONE (09:38)
[2019-12-07] MEDS ORDERED: PANTOPRAZOLE 40 MG INJ IV ONE (09:38)
[2019-12-07] MEDS ORDERED: MORPHINE 4 MG/1 ML INJ IV ONE ×2 (09:38→11:19)
[2019-12-07] MEDS ORDERED: ONDANSETRON 4 MG/2 ML INJ IV ONE (09:38)
--- NOTE | 2019-12-07 09:47 | Emergency Department Report ---
ED Abdominal Pain HPI - General Chief Complaint: Abdominal Pain Stated Complaint: ABD PAIN Time Seen by Provider: 12/07/19 09:22 Source: patient Mode of arrival: Ambulatory Limitations: No Limitations - History of Present Illness Initial Comments: Patient is a 54-year-old female who presents the emergency room with a chief complaint of "pancreatitis." She states that she is having epigastric abdominal pain and it feels similar to when she had pancreatitis in the past. Patient states that she experiences the pain whenever she eats. She also has a history of peptic ulcer disease and has seen a GI doctor in the past Dr. Dyer. She has a past surgical history of a cholecystectomy. She denies any nausea, vomiting, diarrhea, fever, urinary symptoms, hematochezia, melena, hematemesis. She states that she believes her pancreatitis is due to medication use. She states she also has a history of diabetes. Patient states the last time she drank alcohol was last week. She states she has an allergy to tramadol, hydrocodone, NSAIDs. - Related Data Home Medications Medication Instructions Recorded Confirmed Last Taken Simvastatin (Nf) [Zocor TAB] 20 mg PO QHS 04/23/17 11/07/19 Unknown Cholecalciferol (Vitamin D3) 50,000 unit PO QWEEK 11/07/19 11/07/19 Unknown [Vitamin D3 50,000UNIT CAP] Hydralazine HCl 50 mg PO QDAY 11/07/19 11/07/19 Unknown amLODIPine [Norvasc] 10 mg PO DAILY 11/07/19 11/07/19 Unknown levoFLOXacin [Levaquin] 750 mg PO QDAY 11/07/19 11/07/19 Unknown metFORMIN [Glucophage] 500 mg PO BID 11/07/19 11/07/19 Unknown methylPREDNISolone [Medrol 4MG 4 mg PO QDAY 11/07/19 11/07/19 Unknown DOSEPAK (21 tabs)] raNITIdine HCl [Zantac] 300 mg PO QDAY 11/07/19 11/07/19 Unknown Previous Rx's Medication Instructions Recorded Last Taken Type Omeprazole 20 mg PO DAILY #30 tablet. 12/07/19 Unknown Rx Sucralfate [Carafate] 1 gm PO ACHS 7 Days #21 tablet 12/07/19 Unknown Rx Allergies Allergy/AdvReac Type Severity Reaction Status Date / Time tramadol Allergy Shortness Verified 12/15/15 09:50 of Breath hydrocodone AdvReac Shortness Verified 04/24/17 11:37 of Breath NSAIDS (Non-Steroidal AdvReac gi upset Verified 04/24/17 11:37 Anti-Inflamma ED Review of Systems ROS: Stated complaint: ABD PAIN Other details as noted in HPI Comment: All other systems reviewed and negative ED Past Medical Hx - Past Medical History Previous Medical History?: Yes Hx Hypertension: Yes Hx Heart Attack/AMI: No Hx Congestive Heart Failure: No Hx Diabetes: No Hx Deep Vein Thrombosis: No Hx Pulmonary Embolism: No Hx GERD: Yes Hx Renal Disease: No (STONES) Hx Arthritis: Yes Hx Headaches / Migraines: Yes (MIGRAINES) Hx Asthma: No Hx COPD: No Hx Dementia: No Additional medical history: hx of pancreatitis - Surgical History Past Surgical History?: Yes Hx Open Heart Surgery: No Hx Breast Surgery: No Additional Surgical History: abdominal sx 1999. x2 - Social History Smoking Status: Never Smoker Substance Use Type: Alcohol, Prescribed - Medications Home Medications: Home Medications Medication Instructions Recorded Confirmed Last Taken Type Simvastatin (Nf) [Zocor TAB] 20 mg PO QHS 04/23/17 11/07/19 Unknown History Cholecalciferol (Vitamin D3) 50,000 unit PO QWEEK 11/07/19 11/07/19 Unknown History [Vitamin D3 50,000UNIT CAP] Hydralazine HCl 50 mg PO QDAY 11/07/19 11/07/19 Unknown History amLODIPine [Norvasc] 10 mg PO DAILY 11/07/19 11/07/19 Unknown History levoFLOXacin [Levaquin] 750 mg PO QDAY 11/07/19 11/07/19 Unknown History metFORMIN [Glucophage] 500 mg PO BID 11/07/19 11/07/19 Unknown History methylPREDNISolone [Medrol 4MG 4 mg PO QDAY 11/07/19 11/07/19 Unknown History DOSEPAK (21 tabs)] raNITIdine HCl [Zantac] 300 mg PO QDAY 11/07/19 11/07/19 Unknown History Omeprazole 20 mg PO DAILY #30 tablet. 12/07/19 Unknown Rx Sucralfate [Carafate] 1 gm PO ACHS 7 Days #21 tablet 12/07/19 Unknown Rx ED Physical Exam - General Limitations: No Limitations General appearance: alert, in no apparent distress - Head Head exam: Present: atraumatic, normocephalic - Eye Eye exam: Present: normal appearance - ENT ENT exam: Present: mucous membranes moist - Respiratory Respiratory exam: Present: normal lung sounds bilaterally. Absent: respiratory distress, wheezes, rales, rhonchi, stridor, chest wall tenderness, accessory muscle use, decreased breath sounds, prolonged expiratory - Cardiovascular Cardiovascular Exam: Present: regular rate, normal rhythm, normal heart sounds. Absent: systolic murmur, diastolic murmur, rubs, gallop - GI/Abdominal GI/Abdominal exam: Present: soft, tenderness (epigastric, LUQ), normal bowel sounds. Absent: distended, guarding, rebound, rigid - Neurological Exam Neurological exam: Present: alert, oriented X3 - Psychiatric Psychiatric exam: Present: normal affect, normal mood - Skin Skin exam: Present: warm, dry, intact ED Course Vital Signs 12/07/19 12/07/19 12/07/19 09:14 09:35 11:23 Temperature 98.4 F Pulse Rate 79 Respiratory 18 18 18 Rate Blood Pressure 143/86 O2 Sat by Pulse 97 99 Oximetry 12/07/19 12/07/19 11:39 12:29 Temperature Pulse Rate 72 Respiratory 18 Rate Blood Pressure 150/101 O2 Sat by Pulse 97 Oximetry ED Medical Decision Making - Lab Data Result diagrams: 12/07/19 09:55 12/07/19 09:55 Lab Results 12/07/19 12/07/19 12/07/19 Range/Units 09:25 09:31 09:55 WBC 7.1 (4.5-11.0) K/mm3 RBC 4.89 (3.65-5.03) M/mm3 Hgb 13.5 (10.1-14.3) gm/dl Hct 40.9 (30.3-42.9) % MCV 84 (79-97) fl MCH 28 (28-32) pg MCHC 33 (30-34) % RDW 14.7 (13.2-15.2) % Plt Count 302 (140-440) K/mm3 Lymph % (Auto) 31.9 (13.4-35.0) % Parke % (Auto) 7.1 (0.0-7.3) % Eos % (Auto) 1.2 (0.0-4.3) % Baso % (Auto) 0.7 (0.0-1.8) % Lymph # 2.3 (1.2-5.4) K/mm3 Parke # 0.5 (0.0-0.8) K/mm3 Eos # 0.1 (0.0-0.4) K/mm3 Baso # 0.1 (0.0-0.1) K/mm3 Seg Neutrophils % 59.1 (40.0-70.0) % Seg Neutrophils # 4.2 (1.8-7.7) K/mm3 Sodium (137-145) mmol/L Potassium (3.6-5.0) mmol/L Chloride (98-107) mmol/L Carbon Dioxide (22-30) mmol/L Anion Gap mmol/L BUN (7-17) mg/dL Creatinine (0.7-1.2) mg/dL Estimated GFR ml/min BUN/Creatinine Ratio % Glucose (65-100) mg/dL POC Glucose 107 H (70-105) Calcium (8.4-10.2) mg/dL Total Bilirubin (0.1-1.2) mg/dL AST (5-40) units/L ALT (7-56) units/L Alkaline Phosphatase (35-129) units/L Total Protein (6.3-8.2) g/dL Albumin (3.9-5) g/dL Albumin/Globulin Ratio % Lipase (13-60) units/L Urine Color Amanda (Yellow) Urine Turbidity Slightly-cloudy (Clear) Urine pH 5.0 (5.0-7.0) Ur Specific [place] 1.026 (1.003-1.030) Urine Protein 30 mg/dl (Negative) mg/dL Urine Glucose (UA) Neg (Negative) mg/dL Urine Ketones Neg (Negative) mg/dL Urine Blood Sm (Negative) Urine Nitrite Neg (Negative) Urine Bilirubin Neg (Negative) Urine Urobilinogen < 2.0 (<2.0) mg/dL Ur Leukocyte Esterase Neg (Negative) Urine WBC (Auto) 5.0 (0.0-6.0) /HPF Urine RBC (Auto) 2.0 (0.0-6.0) /HPF U Epithel Cells (Auto) 4.0 (0-13.0) /HPF Hyaline Casts 20 /LPF Urine Mucus 3+ /HPF 12/07/19 Range/Units 09:55 WBC (4.5-11.0) K/mm3 RBC (3.65-5.03) M/mm3 Hgb (10.1-14.3) gm/dl Hct (30.3-42.9) % MCV (79-97) fl MCH (28-32) pg MCHC (30-34) % RDW (13.2-15.2) % Plt Count (140-440) K/mm3 Lymph % (Auto) (13.4-35.0) % Parke % (Auto) (0.0-7.3) % Eos % (Auto) (0.0-4.3) % Baso % (Auto) (0.0-1.8) % Lymph # (1.2-5.4) K/mm3 Parke # (0.0-0.8) K/mm3 Eos # (0.0-0.4) K/mm3 Baso # (0.0-0.1) K/mm3 Seg Neutrophils % (40.0-70.0) % Seg Neutrophils # (1.8-7.7) K/mm3 Sodium 140 (137-145) mmol/L Potassium 4.8 (3.6-5.0) mmol/L Chloride 104.4 (98-107) mmol/L Carbon Dioxide 18 L (22-30) mmol/L Anion Gap 22 mmol/L BUN 10 (7-17) mg/dL Creatinine 0.9 (0.7-1.2) mg/dL Estimated GFR > 60 ml/min BUN/Creatinine Ratio 11 % Glucose 100 (65-100) mg/dL POC Glucose (70-105) Calcium 9.9 (8.4-10.2) mg/dL Total Bilirubin 0.20 (0.1-1.2) mg/dL AST 32 (5-40) units/L ALT 28 (7-56) units/L Alkaline Phosphatase 81 (35-129) units/L Total Protein 7.2 (6.3-8.2) g/dL Albumin 4.3 (3.9-5) g/dL Albumin/Globulin Ratio 1.5 % Lipase 27 (13-60) units/L Urine Color (Yellow) Urine Turbidity (Clear) Urine pH (5.0-7.0) Ur Specific [place] (1.003-1.030) Urine Protein (Negative) mg/dL Urine Glucose (UA) (Negative) mg/dL Urine Ketones (Negative) mg/dL Urine Blood (Negative) Urine Nitrite (Negative) Urine Bilirubin (Negative) Urine Urobilinogen (<2.0) mg/dL Ur Leukocyte Esterase (Negative) Urine WBC (Auto) (0.0-6.0) /HPF Urine RBC (Auto) (0.0-6.0) /HPF U Epithel Cells (Auto) (0-13.0) /HPF Hyaline Casts /LPF Urine Mucus /HPF - Medical Decision Making Patient is a 54-year-old female who presents the emergency room with a chief complaint of "pancreatitis." She states that she is having epigastric abdominal pain and it feels similar to when she had pancreatitis in the past. Patient states that she experiences the pain whenever she eats. She also has a history of peptic ulcer disease and has seen a GI doctor in the past Dr. Dyer. She has a past surgical history of a cholecystectomy. She denies any nausea, vomiting, diarrhea, fever, urinary symptoms, hematochezia, melena, hematemesis. She states that she believes her pancreatitis is due to medication use. She states she also has a history of diabetes. Patient states the last time she drank alcohol was last week. She states she has an allergy to tramadol, hydrocodone, NSAIDs. Vitals are stable. On exam epigastric and left upper quadrant tenderness to palpation. Labs are stable. Lipase is normal. Patient given 1 L IV fluids, Zofran, morphine, Protonix and symptoms and pain improved. Symptoms most likely secondary to PUD as patient experiences the pain after eating. Will have patient follow-up with GI for further evaluation. Patient given prescription for Carafate and omeprazole. Advised patient Please take medication as prescribed. Increase your water intake. Please follow the diet for ulcers. Follow-up with a GI doctor. Return to the emergency room for any new or worsening symptoms. - Differential Diagnosis GERD, gastric ulcer, duodenal ulcer, h pylori, gastritis, pancreatitis Critical care attestation.: If time is entered above; I have spent that time in minutes in the direct care of this critically ill patient, excluding procedure time. ED Disposition Clinical Impression: Epigastric abdominal pain Disposition: DC-01 TO HOME OR SELFCARE Is pt being admited?: No Does the pt Need Aspirin: No Condition: Stable Instructions: Peptic Ulcer (ED), Diet for Ulcers and Gastritis (ED), Abdominal Pain (ED) Additional Instructions: Please take medication as prescribed. Increase your water intake. Please follow the diet for ulcers. Follow-up with a GI doctor. Return to the emergency room for any new or worsening symptoms. Prescriptions: Sucralfate [Carafate] 1 gm PO ACHS 7 Days #21 tablet Omeprazole 20 mg PO DAILY #30 tablet.dr Referrals: ABIGAIL DIXON MD [Primary Care Provider] - 3-5 Days [facility] [Provider Group] - 3-5 Days Time of Disposition: 10:58 Print Language: CONGOLESE
[2019-12-07 09:51] LABS: Bilirubin,Urine NEG (Negative); Blood,Urine SM (Negative); Color,Urine Amber (Yellow); Hyaline Casts,Urine 20 /LPF; Mucus,Urine 3+ /HPF; Urobilinogen,Urine < 2.0 mg/dL (<2.0)
[2019-12-07 10:14] LABS: Basophils # (Auto) 0.1 K/mm3 (0.0-0.1); Basophils % (Auto) 0.7 % (0.0-1.8); Eosinophils # (Auto) 0.1 K/mm3 (0.0-0.4); Eosinophils % (Auto) 1.2 % (0.0-4.3); Hematocrit 40.9 % (30.3-42.9); Hemoglobin 13.5 gm/dl (10.1-14.3); Lymphocytes # (Auto) 2.3 K/mm3 (1.2-5.4); Lymphocytes % (Auto) 31.9 % (13.4-35.0); Mean Corpuscular HGB Conc 33 % (30-34); Mean Corpuscular Volume 84 fl (79-97); Monocytes # (Auto) 0.5 K/mm3 (0.0-0.8); Monocytes % (Auto) 7.1 % (0.0-7.3); Platelet Count 302 K/mm3 (140-440); Red Blood Count 4.89 M/mm3 (3.65-5.03); Red Cell Distribution Width 14.7 % (13.2-15.2)
[2019-12-07 10:33] LABS: Albumin 4.3 g/dL (3.9-5); BUN/Creatinine Ratio 11; Blood Urea Nitrogen 10 mg/dL (7-17); Calcium 9.9 mg/dL (8.4-10.2); Hemolysis Index 121
[2019-12-07 10:48] LABS: Alanine Aminotransferase 28 units/L (7-56)
[2019-12-07 12:41] VITALS: BP 150/101
== END 2019-12-07 12:30 | disposition home or self-care (01) ==
LOC: ED 09:12
DX: R10.13 Epigastric pain (principal); I10 Essential (primary) hypertension; K21.9 Gastro-esophageal reflux disease without esophagitis; M19.90 Unspecified osteoarthritis, unspecified site; G43.909 Migraine, unspecified, not intractable, without status migrainosus
CPT/HCPCS: 36415; 80053; 81001; 82962; 83690; 85025; 96374; 96375; 99283; C9113; J2270; J2405; J7030

== ENCOUNTER 2020-11-17 11:44 | Emergency (ER) | payer MEDICAID ==
[2020-11-17 12:16] VITALS: BP 143/92
--- NOTE | 2020-11-17 12:20 | Emergency Department Report ---
ED General Adult HPI - General Chief complaint: Fall Stated complaint: HEAD/NECK/BACK PAIN Time Seen by Provider: 11/17/20 12:14 Source: patient Mode of arrival: Ambulatory Limitations: No Limitations - History of Present Illness Initial comments: 55-year-old -[place] female patient presents with complaints of headache, neck pain, and upper back pain after a fall injury 3 days ago. Patient states she was in the bathroom and fell from about 4 feet high hitting her head on the tub. She denies any loss of consciousness, vision changes, numbness/tingling/weakness in her limbs, difficulty with speech/ambulation, or memory loss. She admits to some nausea and vomiting and dizziness. Patient rates her overall pain as a 9/10 in severity. She denies being on blood thinners or worst headache of her life. Past medical history includes migraines, hypertension, and diabetes - Related Data Home Medications Medication Instructions Recorded Confirmed Last Taken Simvastatin (Nf) [Zocor TAB] 20 mg PO QHS 04/23/17 11/07/19 Unknown Cholecalciferol (Vitamin D3) 50,000 unit PO QWEEK 11/07/19 11/07/19 Unknown [Vitamin D3 50,000UNIT CAP] Hydralazine HCl 50 mg PO QDAY 11/07/19 11/07/19 Unknown amLODIPine [Norvasc] 10 mg PO DAILY 11/07/19 11/07/19 Unknown levoFLOXacin [Levaquin] 750 mg PO QDAY 11/07/19 11/07/19 Unknown metFORMIN [Glucophage] 500 mg PO BID 11/07/19 11/07/19 Unknown methylPREDNISolone [Medrol 4MG 4 mg PO QDAY 11/07/19 11/07/19 Unknown DOSEPAK (21 tabs)] raNITIdine HCl [Zantac] 300 mg PO QDAY 11/07/19 11/07/19 Unknown Previous Rx's Medication Instructions Recorded Last Taken Type Omeprazole 20 mg PO DAILY #30 tablet. 12/07/19 Unknown Rx Sucralfate [Carafate] 1 gm PO ACHS 7 Days #21 tablet 12/07/19 Unknown Rx methocarbamoL [Methocarbamol] 750 - 1,500 mg PO TID PRN #20 11/17/20 Unknown Rx tablet Allergies Allergy/AdvReac Type Severity Reaction Status Date / Time tramadol Allergy Shortness Verified 08/11/15 09:50 of Breath hydrocodone AdvReac Shortness Verified 04/24/17 11:37 of Breath NSAIDS (Non-Steroidal AdvReac gi upset Verified 04/24/17 11:37 Anti-Inflamma ED Review of Systems ROS: Stated complaint: HEAD/NECK/BACK PAIN Other details as noted in HPI Constitutional: denies: chills, fever Eyes: denies: vision change Respiratory: denies: cough, shortness of breath Cardiovascular: denies: chest pain Gastrointestinal: nausea, vomiting. denies: abdominal pain, hematochezia Genitourinary: denies: hematuria Musculoskeletal: back pain. denies: joint swelling, arthralgia Skin: denies: change in color Neurological: headache. denies: numbness, paresthesias, confusion, abnormal gait Hematological/Lymphatic: denies: easy bleeding, easy bruising ED Past Medical Hx - Past Medical History Previous Medical History?: Yes Hx Hypertension: Yes Hx Heart Attack/AMI: No Hx Congestive Heart Failure: No Hx Diabetes: Yes Hx Deep Vein Thrombosis: No Hx Pulmonary Embolism: No Hx GERD: Yes Hx Renal Disease: No (STONES) Hx Arthritis: Yes Hx Headaches / Migraines: Yes (MIGRAINES) Hx Asthma: No Hx COPD: No Hx Dementia: No Additional medical history: hx of pancreatitis - Surgical History Hx Open Heart Surgery: No Hx Breast Surgery: No Additional Surgical History: abdominal sx 1999. x2 - Social History Smoking Status: Never Smoker Substance Use Type: Alcohol - Medications Home Medications: Home Medications Medication Instructions Recorded Confirmed Last Taken Type Simvastatin (Nf) [Zocor TAB] 20 mg PO QHS 04/23/17 11/07/19 Unknown History Cholecalciferol (Vitamin D3) 50,000 unit PO QWEEK 11/07/19 11/07/19 Unknown History [Vitamin D3 50,000UNIT CAP] Hydralazine HCl 50 mg PO QDAY 11/07/19 11/07/19 Unknown History amLODIPine [Norvasc] 10 mg PO DAILY 11/07/19 11/07/19 Unknown History levoFLOXacin [Levaquin] 750 mg PO QDAY 11/07/19 11/07/19 Unknown History metFORMIN [Glucophage] 500 mg PO BID 11/07/19 11/07/19 Unknown History methylPREDNISolone [Medrol 4MG 4 mg PO QDAY 11/07/19 11/07/19 Unknown History DOSEPAK (21 tabs)] raNITIdine HCl [Zantac] 300 mg PO QDAY 11/07/19 11/07/19 Unknown History Omeprazole 20 mg PO DAILY #30 tablet. 12/07/19 Unknown Rx Sucralfate [Carafate] 1 gm PO ACHS 7 Days #21 tablet 12/07/19 Unknown Rx methocarbamoL [Methocarbamol] 750 - 1,500 mg PO TID PRN #20 11/17/20 Unknown Rx tablet ED Physical Exam - General Limitations: No Limitations General appearance: alert, in no apparent distress, obese - Head Head exam: Present: atraumatic, normocephalic - Eye Eye exam: Present: normal appearance, PERRL, EOMI. Absent: scleral icterus - Neck Neck exam: Present: tenderness (Bilateral paraspinal and vertebral tenderness noted without obvious deformity), full ROM - Respiratory Respiratory exam: Absent: respiratory distress - Cardiovascular Cardiovascular Exam: Present: regular rate - GI/Abdominal GI/Abdominal exam: Present: soft. Absent: tenderness - Back Exam Back exam: Present: full ROM, paraspinal tenderness (Upper thoracic), vertebral tenderness (Upper thoracic) - Neurological Exam Neurological exam: Present: alert, oriented X3, CN II-XII intact, normal gait. Absent: motor sensory deficit - Expanded Neurological Exam Expanded Cerebellar function: Finger to Nose: Normal, Heel to Florentino: Normal, Romberg: Normal Sensory exam: Upper Extremity Light Touch: Normal, Lower Extremity Light Touch: Normal Motor strength exam: RUE: 5, LUE: 5, RLE: 5, LLE: 5 - Psychiatric Psychiatric exam: Present: normal affect, normal mood - Skin Skin exam: Present: warm, dry, intact, normal color. Absent: rash, cyanosis, diaphoretic ED Course Vital Signs 11/17/20 11/17/20 12:13 15:00 Temperature 98.7 F Pulse Rate 77 Respiratory 20 18 Rate Blood Pressure 143/92 O2 Sat by Pulse 99 Oximetry ED Medical Decision Making - Radiology Data Radiology results: report reviewed XR spine thoracic 2V INDICATION / CLINICAL INFORMATION: pain after fall injury. COMPARISON: Chest radiograph from 11/07/2019. FINDINGS: Mild left convex curvature of the thoracic spine. Vertebral body heights are intact. No acute fracture or subluxation. Moderate multilevel disc degenerative changes. Visualized lungs are clear. IMPRESSION: No acute process per Exam: CT cervical spine History: posterior pain after fall injury; Technique: Contiguous thin cut axial images obtained through the cervical sp ine. Sagittal and coronal reconstructions performed by the technologist. All CT scans at this location are performed using CT dose reduction for ALARA by means of automated exposure control. Findings: No priors. There is no evidence of fracture or traumatic subluxation. Vertebral bodies are normal in height and alignment. Large anterior bridging osteophytes at C3-C4, C5-C6 and C6-C7 disc levels; minimal disc height loss in the lower cervical discs C4-C5: Bilateral foraminal stenoses from disc osteophyte complex C5-C6: Right foraminal stenoses due to disc osteophyte complex C6-C7: Bilateral foraminal stenoses due to disc osteophyte complex No significant degenerative change seen in the uncinate or facet joints. No significant canal stenosis or osseous foraminal narrowing. Surrounding soft tissues are grossly normal. Impression: No signs of acute bony trauma to the cervical spine. NONENHANCED CT SCAN OF THE HEAD: INDICATION / CLINICAL INFORMATION: 55 years Female; posterior pain after fall injury. TECHNIQUE: Routine CT head without contrast. All CT scans at this location are performed using CT dose reduction for ALARA by means of automated exposure control. COMPARISON: None. FINDINGS: BRAIN / INTRACRANIAL CONTENTS: No intracranial sequela from the trauma; no scalp hematoma; no air- fluid level in the visualized portions of the paranasal sinuses. No acute hemorrhage, mass effect, midline shift, hydrocephalus, or acute, large territorial infarct. No chronic infarct or focal atrophy. Normal brain volume and ventricular/sulcal size for age. No significant white matter abnormality. CRANIOCERVICAL JUNCTION: No significant abnormality. ORBITS: No significant abnormality of visualized orbits. SINUSES / MASTOIDS: No significant abnormality of the visualized paranasal sinuses or mastoid air cells. ADDITIONAL FINDINGS: None. IMPRESSION: No intracranial sequela from the trauma No focal mass, hemorrhage, hydrocephalus, or acute, large territorial infarct. - Medical Decision Making 55-year-old -[place] female patient presents with complaints of headache, neck pain, and upper back pain after a fall injury 3 days ago. Patient states she was in the bathroom and fell from about 4 feet high hitting her head on the tub. She denies any loss of consciousness, vision changes, numbness/tingling/weakness in her limbs, difficulty with speech/ambulation, or memory loss. She admits to some nausea and vomiting and dizziness. Patient rates her overall pain as a 9/10 in severity. She denies being on blood thinners or worst headache of her life. Past medical history includes migraines, hypertension, and diabetes Given fall greater than 3 feet, [place] CT head rules recommend CT head. CT cervical spine performed given spinal tenderness on exam. Imaging is negative for any acute bony abnormalities. Patient treated with Toradol and Decadron and prescription for Robaxin given. Recommend icing and stretching of the neck and follow-up with primary care doctor within 2 days. Also discussed importance of brain rest given possible mild concussion. Signs and symptoms that should prompt immediate return to the emergency department were discussed in detail with patient who verbalized understanding. Critical care attestation.: If time is entered above; I have spent that time in minutes in the direct care of this critically ill patient, excluding procedure time. ED Disposition Clinical Impression: Head injury, Neck muscle strain, Thoracic myofascial strain Disposition: DC-01 TO HOME OR SELFCARE Is pt being admited?: No Condition: Stable Instructions: Head Injury, Adult, Thoracic Strain, Concussion, Adult, Cervical Sprain Prescriptions: methocarbamoL [Methocarbamol] 750 - 1,500 mg PO TID PRN #20 tablet PRN Reason: muscle spasm/tightness Referrals: PRIMARY CARE, [Primary Care Provider] - 3-5 Days Forms: Work/School Release Form(ED)
--- NOTE | 2020-11-17 13:01 | Cat Scan Report ---
NONENHANCED CT SCAN OF THE HEAD: INDICATION / CLINICAL INFORMATION: 55 years Female; posterior pain after fall injury. TECHNIQUE: Routine CT head without contrast. All CT scans at this location are performed using CT dos e reduction for ALARA by means of automated exposure control. COMPARISON: None. FINDINGS: BRAIN / INTRACRANIAL CONTENTS: No intracranial sequela from the trauma; no scalp hematoma; no air-flu id level in the visualized portions of the paranasal sinuses. No acute hemorrhage, mass effect, midline shift, hydrocephalus, or acute, large territorial infarct. No chronic infarct or focal atrophy. Normal brain volume and ventricular/sulcal size for age. No sig nificant white matter abnormality. CRANIOCERVICAL JUNCTION: No significant abnormality. ORBITS: No significant abnormality of visualized orbits. SINUSES / MASTOIDS: No significant abnormality of the visualized paranasal sinuses or mastoid air kika ls. ADDITIONAL FINDINGS: None. IMPRESSION: No intracranial sequela from the trauma No focal mass, hemorrhage, hydrocephalus, or acute, large territorial infarct. Signer Name: Lisa Blancas MD Signed: 11/17/2020 12:57 PM Workstation Name: [id number]
--- NOTE | 2020-11-17 13:07 | Cat Scan Report ---
Exam: CT cervical spine History: posterior pain after fall injury; Technique: Contiguous thin cut axial images obtained through the cervical spine. Sagittal and meraz l reconstructions performed by the technologist. All CT scans at this location are performed using CT dose reduction for ALARA by means of automated exposure control. Findings: No priors. There is no evidence of fracture or traumatic subluxation. Vertebral bodies are normal in height and alignment. Large anterior bridging osteophytes at C3-C4, C5-C6 and C6-C7 disc levels; minimal disc height loss i n the lower cervical discs C4-C5: Bilateral foraminal stenoses from disc osteophyte complex C5-C6: Right foraminal stenoses due to disc osteophyte complex C6-C7: Bilateral foraminal stenoses due to disc osteophyte complex No significant degenerative change seen in the uncinate or facet joints. No significant canal stenosi s or osseous foraminal narrowing. Surrounding soft tissues are grossly normal. Impression: No signs of acute bony trauma to the cervical spine. Signer Name: Lisa Blancas MD Signed: 11/17/2020 1:03 PM Workstation Name: [id number]
--- NOTE | 2020-11-17 13:18 | XRay Report ---
XR spine thoracic 2V INDICATION / CLINICAL INFORMATION: pain after fall injury. COMPARISON: Chest radiograph from 11/07/2019. FINDINGS: Mild left convex curvature of the thoracic spine. Vertebral body heights are intact. No acute fractur e or subluxation. Moderate multilevel disc degenerative changes. Visualized lungs are clear. IMPRESSION: No acute process per Signer Name: Topher Bueno MD Signed: 11/17/2020 1:13 PM Workstation Name: [id number]
[2020-11-17] MEDS ORDERED: KETOROLAC 30 MG/1 ML INJ IM ONE (14:34)
[2020-11-17] MEDS ORDERED: dexAMETHasone 20 MG/5 ML VIAL IM ONE (14:34)
== END 2020-11-17 15:05 | disposition home or self-care (01) ==
LOC: ED 11:44
DX: S16.1XXA Strain of muscle, fascia and tendon at neck level, initial encounter (principal); S29.012A Strain of muscle and tendon of back wall of thorax, initial encounter; S09.90XA Unspecified injury of head, initial encounter; I10 Essential (primary) hypertension; E11.9 Type 2 diabetes mellitus without complications; K21.9 Gastro-esophageal reflux disease without esophagitis; Z79.899 Other long term (current) drug therapy; G43.909 Migraine, unspecified, not intractable, without status migrainosus; Z88.8 Allergy status to other drugs, medicaments and biological substances; W22.8XXA Striking against or struck by other objects, initial encounter; Y93.89 Activity, other specified; Y92.89 Other specified places as the place of occurrence of the external cause; Y99.8 Other external cause status
CPT/HCPCS: 70450; 72070; 72125; 96372; 99284; J1100; J1885

== ENCOUNTER 2021-03-10 16:03 | Emergency (ER) | payer MEDICAID ==
[2021-03-10 17:00] VITALS: BP 145/80
== END 2021-03-10 18:21 | disposition left against medical advice (07) ==
LOC: ED 16:03
DX: M62.838 Other muscle spasm (principal); Z53.21 Procedure and treatment not carried out due to patient leaving prior to being seen by health care provider

== ENCOUNTER 2021-04-25 17:47 | Emergency (ER) | payer MEDICAID ==
[2021-04-25 18:03] VITALS: BP 140/90
--- NOTE | 2021-04-25 18:49 | Emergency Department Report ---
ED Back Pain/Injury HPI - General Chief Complaint: Back Pain/Injury Stated Complaint: LOWER RT SIDE/BACK PAIN Time Seen by Provider: 04/25/21 18:48 Source: patient Limitations: No Limitations - History of Present Illness Initial Comments: Chief complaint: Throbbing back pain for 3 days" HPI: This is a 56-year-old female with history of recent UTI, fibromyalgia, arthritis, gout, diabetes mellitus, peptic ulcer disease, GERD, migraine headache, pancreatitis who presents with right flank throbbing pain for the last 3 days. No change with movement. Patient's had pressure with urination. She also has frequency of urination. She denies hematuria. No history of kidney stones. Pain is moderate out radiation. She is unable to use NSAIDs due to peptic ulcer disease. Patient recently received a course of antibiotic at [facility] urgent care. Patient still had persistent pressure with urination. MD Complaint: back pain -: Gradual, days(s) (3 days) Similar Symptoms Previously: No Severity: mild Severity scale (0 -10): 5 Quality: dull, other (Throbbing) Consistency: constant Improves With: none Worsens With: none Associated Symptoms: other (Pressure feeling urination frequent urination) - Related Data Home Medications Medication Instructions Recorded Confirmed Last Taken Simvastatin (Nf) [Zocor TAB] 20 mg PO QHS 04/23/17 11/07/19 Unknown Cholecalciferol (Vitamin D3) 50,000 unit PO QWEEK 11/07/19 11/07/19 Unknown [Vitamin D3 50,000UNIT CAP] Hydralazine HCl 50 mg PO QDAY 11/07/19 11/07/19 Unknown amLODIPine [Norvasc] 10 mg PO DAILY 11/07/19 11/07/19 Unknown levoFLOXacin [Levaquin] 750 mg PO QDAY 11/07/19 11/07/19 Unknown metFORMIN [Glucophage] 500 mg PO BID 11/07/19 11/07/19 Unknown methylPREDNISolone [Medrol 4MG 4 mg PO QDAY 11/07/19 11/07/19 Unknown DOSEPAK (21 tabs)] raNITIdine HCl [Zantac] 300 mg PO QDAY 11/07/19 11/07/19 Unknown Previous Rx's Medication Instructions Recorded Last Taken Type Omeprazole 20 mg PO DAILY #30 tablet. 04/11/20 Unknown Rx Sucralfate [Carafate] 1 gm PO ACHS 7 Days #21 tablet 12/07/19 Unknown Rx methocarbamoL [Methocarbamol] 750 - 1,500 mg PO TID PRN #20 11/17/20 Unknown Rx tablet Nitrofurantoin Macrocrystal 100 mg PO BID 7 Days #14 capsule 04/25/21 Unknown Rx [Nitrofurantoin] Allergies Allergy/AdvReac Type Severity Reaction Status Date / Time tramadol Allergy Shortness Verified 08/11/15 09:50 of Breath hydrocodone AdvReac Shortness Verified 04/24/17 11:37 of Breath NSAIDS (Non-Steroidal AdvReac gi upset Verified 04/24/17 11:37 Anti-Inflamma ED Review of Systems ROS: Stated complaint: LOWER RT SIDE/BACK PAIN Other details as noted in HPI Comment: All other systems reviewed and negative Constitutional: denies: chills, fever Respiratory: denies: cough, shortness of breath Cardiovascular: denies: chest pain Gastrointestinal: denies: abdominal pain, nausea, vomiting, diarrhea Musculoskeletal: back pain ED Past Medical Hx - Past Medical History Previous Medical History?: Yes Hx Hypertension: Yes Hx Heart Attack/AMI: No Hx Congestive Heart Failure: No Hx Diabetes: Yes Hx Deep Vein Thrombosis: No Hx Pulmonary Embolism: No Hx GERD: Yes Hx Renal Disease: No (STONES) Hx Arthritis: Yes Hx Headaches / Migraines: Yes (MIGRAINES) Hx Asthma: No Hx COPD: No Hx Dementia: No Additional medical history: hx of pancreatitis, fibromyalgia, gout in left arm - Surgical History Past Surgical History?: Yes Hx Open Heart Surgery: No Hx Breast Surgery: No Additional Surgical History: abdominal sx 1999. x2 - Social History Smoking Status: Never Smoker Substance Use Type: Alcohol - Medications Home Medications: Home Medications Medication Instructions Recorded Confirmed Last Taken Type Simvastatin (Nf) [Zocor TAB] 20 mg PO QHS 04/23/17 11/07/19 Unknown History Cholecalciferol (Vitamin D3) 50,000 unit PO QWEEK 11/07/19 11/07/19 Unknown History [Vitamin D3 50,000UNIT CAP] Hydralazine HCl 50 mg PO QDAY 11/07/19 11/07/19 Unknown History amLODIPine [Norvasc] 10 mg PO DAILY 11/07/19 11/07/19 Unknown History levoFLOXacin [Levaquin] 750 mg PO QDAY 11/07/19 11/07/19 Unknown History metFORMIN [Glucophage] 500 mg PO BID 11/07/19 11/07/19 Unknown History methylPREDNISolone [Medrol 4MG 4 mg PO QDAY 11/07/19 11/07/19 Unknown History DOSEPAK (21 tabs)] raNITIdine HCl [Zantac] 300 mg PO QDAY 11/07/19 11/07/19 Unknown History Omeprazole 20 mg PO DAILY #30 tablet.dr 12/07/19 Unknown Rx Sucralfate [Carafate] 1 gm PO ACHS 7 Days #21 tablet 12/07/19 Unknown Rx methocarbamoL [Methocarbamol] 750 - 1,500 mg PO TID PRN #20 11/17/20 Unknown Rx tablet Nitrofurantoin Macrocrystal 100 mg PO BID 7 Days #14 capsule 04/25/21 Unknown Rx [Nitrofurantoin] ED Physical Exam - General Limitations: No Limitations General appearance: alert, in no apparent distress, other (Steady normal gait, appears comfortable nontoxic-appearing) - Head Head exam: Present: atraumatic, normocephalic - Eye Eye exam: Present: normal appearance - ENT ENT exam: Present: mucous membranes moist - Neck Neck exam: Present: normal inspection - Respiratory Respiratory exam: Present: normal lung sounds bilaterally. Absent: respiratory distress - Cardiovascular Cardiovascular Exam: Present: regular rate, normal rhythm. Absent: systolic murmur, diastolic murmur, rubs, gallop - GI/Abdominal GI/Abdominal exam: Present: soft, normal bowel sounds - Extremities Exam Extremities exam: Present: normal inspection - Back Exam Back exam: Present: normal inspection, full ROM. Absent: tenderness, CVA tenderness (R), CVA tenderness (L), muscle spasm, paraspinal tenderness, vertebral tenderness, rash noted - Neurological Exam Neurological exam: Present: alert, oriented X3, normal gait - Psychiatric Psychiatric exam: Present: normal affect, normal mood - Skin Skin exam: Present: warm, dry, intact, normal color. Absent: rash ED Course Vital Signs 04/25/21 17:59 Temperature 98 F Pulse Rate 82 Respiratory 20 Rate Blood Pressure 140/90 O2 Sat by Pulse 98 Oximetry ED Medical Decision Making - Medical Decision Making With history of recent UTI, clinical impression: Acute pyelonephritis: Patient was unable to recall name of previously prescribed antibiotics. I prescribed nitrofurantoin. Patient verbalized understanding of return precautions includin g fever, severe back pain, vomiting, or new symptoms. Critical care attestation.: If time is entered above; I have spent that time in minutes in the direct care of this critically ill patient, excluding procedure time. ED Disposition Clinical Impression: Acute pyelonephritis Disposition: HOME / SELF CARE / HOMELESS Is pt being admited?: No Does the pt Need Aspirin: No Condition: Stable Instructions: Pyelonephritis, Adult Prescriptions: Nitrofurantoin Macrocrystal [Nitrofurantoin] 100 mg PO BID 7 Days #14 capsule Referrals: ABIGAIL DIXON MD [Staff Physician] - as needed
== END 2021-04-25 18:55 | disposition home or self-care (01) ==
LOC: ED 17:47
DX: N10 Acute pyelonephritis (principal); I10 Essential (primary) hypertension; E11.8 Type 2 diabetes mellitus with unspecified complications; K21.9 Gastro-esophageal reflux disease without esophagitis; M19.90 Unspecified osteoarthritis, unspecified site; G43.909 Migraine, unspecified, not intractable, without status migrainosus; K85.90 Acute pancreatitis without necrosis or infection, unspecified; M79.7 Fibromyalgia; M10.9 Gout, unspecified; Z98.890 Other specified postprocedural states; Z88.5 Allergy status to narcotic agent; Z88.6 Allergy status to analgesic agent
CPT/HCPCS: 99282

== ENCOUNTER 2021-08-30 06:53 | Emergency (ER) | payer MEDICAID ==
[2021-08-30 07:27] VITALS: BP 129/82
--- NOTE | 2021-08-30 08:17 | Emergency Department Report ---
ED General Adult HPI - General Chief complaint: Chest Pain Stated complaint: Chest pain, SOA, body aches Time Seen by Provider: 08/30/21 07:54 Source: patient Mode of arrival: Ambulatory Limitations: No Limitations - History of Present Illness Initial comments: 36-year-old -[place] female presents to the emergency room reporting she has been having chest pain cough chest congestion nausea diarrhea and body aches for the last 2 days. Patient states that she is vaccinated. Reports that she is concerned for pneumonia. Patient states that she has had Covid in the past. She has a past medical history of diabetes hypertension asthma fibromyalgia and arthritis. She states she has been using steam and taking tea lemon and tierra. States her last menstrual period is in menopause. She has had a cholecystectomy. Primary care provider is Dr. Kiran Dixon. She has not taken any Tylenol or ibuprofen or [id number] cold meds. Onset/Timin -: days(s) Location: chest Severity scale (0 -10): 6 Quality: aching, sharp Consistency: intermittent Improves with: none Worsens with: other (Cough) Associated Symptoms: chest pain, cough, nausea/vomiting (Nausea no vomiting). denies: diaphoresis, fever/chills, headaches, loss of appetite Treatments Prior to Arrival: none - Related Data Home Medications Medication Instructions Recorded Confirmed Last Taken Simvastatin (Nf) [Zocor TAB] 20 mg PO QHS 04/23/17 11/07/19 Unknown Cholecalciferol (Vitamin D3) 50,000 unit PO QWEEK 11/07/19 11/07/19 Unknown [Vitamin D3 50,000UNIT CAP] Hydralazine HCl 50 mg PO QDAY 11/07/19 11/07/19 Unknown amLODIPine [Norvasc] 10 mg PO DAILY 11/07/19 11/07/19 Unknown levoFLOXacin [Levaquin] 750 mg PO QDAY 11/07/19 11/07/19 Unknown metFORMIN [Glucophage] 500 mg PO BID 11/07/19 11/07/19 Unknown methylPREDNISolone [Medrol 4MG 4 mg PO QDAY 11/07/19 11/07/19 Unknown DOSEPAK (21 tabs)] raNITIdine HCl [Zantac] 300 mg PO QDAY 11/07/19 11/07/19 Unknown Previous Rx's Medication Instructions Recorded Last Taken Type Omeprazole 20 mg PO DAILY #30 tablet. 12/07/19 Unknown Rx Sucralfate [Carafate] 1 gm PO ACHS 7 Days #21 tablet 12/07/19 Unknown Rx methocarbamoL [Methocarbamol] 750 - 1,500 mg PO TID PRN #20 11/17/20 Unknown Rx tablet Nitrofurantoin Macrocrystal 100 mg PO BID 7 Days #14 capsule 04/25/21 Unknown Rx [Nitrofurantoin] Allergies Allergy/AdvReac Type Severity Reaction Status Date / Time tramadol Allergy Shortness Verified 08/11/15 09:50 of Breath hydrocodone AdvReac Shortness Verified 04/24/17 11:37 of Breath NSAIDS (Non-Steroidal AdvReac gi upset Verified 04/24/17 11:37 Anti-Inflamma ED Review of Systems ROS: Stated complaint: Chest pain, SOA, body aches Other details as noted in HPI Comment: All other systems reviewed and negative ED Past Medical Hx - Past Medical History Hx Hypertension: Yes Hx Heart Attack/AMI: No Hx Congestive Heart Failure: No Hx Diabetes: Yes Hx Deep Vein Thrombosis: No Hx Pulmonary Embolism: No Hx GERD: Yes Hx Renal Disease: No (STONES) Hx Arthritis: Yes Hx Headaches / Migraines: Yes (MIGRAINES) Hx Asthma: No Hx COPD: No Hx Dementia: No Additional medical history: hx of pancreatitis, fibromyalgia, gout in left arm - Surgical History Hx Open Heart Surgery: No Hx Breast Surgery: No Additional Surgical History: abdominal sx 1999. x2 - Social History Smoking Status: Never Smoker Substance Use Type: Alcohol - Medications Home Medications: Home Medications Medication Instructions Recorded Confirmed Last Taken Type Simvastatin (Nf) [Zocor TAB] 20 mg PO QHS 04/23/17 11/07/19 Unknown History Cholecalciferol (Vitamin D3) 50,000 unit PO QWEEK 11/07/19 11/07/19 Unknown History [Vitamin D3 50,000UNIT CAP] Hydralazine HCl 50 mg PO QDAY 11/07/19 11/07/19 Unknown History amLODIPine [Norvasc] 10 mg PO DAILY 11/07/19 11/07/19 Unknown History levoFLOXacin [Levaquin] 750 mg PO QDAY 11/07/19 11/07/19 Unknown History metFORMIN [Glucophage] 500 mg PO BID 11/07/19 11/07/19 Unknown History methylPREDNISolone [Medrol 4MG 4 mg PO QDAY 11/07/19 11/07/19 Unknown History DOSEPAK (21 tabs)] raNITIdine HCl [Zantac] 300 mg PO QDAY 11/07/19 11/07/19 Unknown History Omeprazole 20 mg PO DAILY #30 tablet. 12/07/19 Unknown Rx Sucralfate [Carafate] 1 gm PO ACHS 7 Days #21 tablet 12/07/19 Unknown Rx methocarbamoL [Methocarbamol] 750 - 1,500 mg PO TID PRN #20 11/17/20 Unknown Rx tablet Nitrofurantoin Macrocrystal 100 mg PO BID 7 Days #14 capsule 04/25/21 Unknown Rx [Nitrofurantoin] ED Physical Exam - General Limitations: No Limitations General appearance: alert, in no apparent distress - Head Head exam: Present: atraumatic, normocephalic - Eye Eye exam: Present: normal appearance - ENT ENT exam: Present: mucous membranes moist, TM's normal bilaterally, normal external ear exam - Neck Neck exam: Present: normal inspection, full ROM - Respiratory Respiratory exam: Present: normal lung sounds bilaterally. Absent: respiratory distress - Cardiovascular Cardiovascular Exam: Present: regular rate, normal rhythm. Absent: systolic murmur, diastolic murmur, rubs, gallop - GI/Abdominal GI/Abdominal exam: Present: soft, normal bowel sounds - Extremities Exam Extremities exam: Present: normal inspection - Back Exam Back exam: Present: normal inspection - Neurological Exam Neurological exam: Present: alert, oriented X3, normal gait - Psychiatric Psychiatric exam: Present: normal affect, normal mood - Skin Skin exam: Present: warm, dry, intact, normal color. Absent: rash ED Course Vital Signs 08/30/21 07:26 Temperature 98.7 F Pulse Rate 91 H Respiratory 18 Rate Blood Pressure 129/82 O2 Sat by Pulse 97 Oximetry ED Medical Decision Making - Lab Data Result diagrams: 08/30/21 08:21 Lab Results 08/30/21 08/30/21 Range/Units 08:21 08:21 WBC 5.8 (4.5-11.0) K/mm3 RBC 5.14 H (3.65-5.03) M/mm3 Hgb 13.6 (10.1-14.3) gm/dl Hct 44.1 H (30.3-42.9) % MCV 86 (79-97) fl MCH 27 L (28-32) pg MCHC 31 (30-34) % RDW 14.0 (13.2-15.2) % Plt Count 261 (140-440) K/mm3 Lymph % (Auto) 18.4 (13.4-35.0) % [place] % (Auto) 12.0 H (0.0-7.3) % Eos % (Auto) 4.9 H (0.0-4.3) % Baso % (Auto) 0.6 (0.0-1.8) % Lymph # (Auto) 1.1 L (1.2-5.4) K/mm3 [place] # (Auto) 0.7 (0.0-0.8) K/mm3 Eos # (Auto) 0.3 (0.0-0.4) K/mm3 Baso # (Auto) 0.0 (0.0-0.1) K/mm3 Seg Neutrophils % 64.1 (40.0-70.0) % Seg Neutrophils # 3.7 (1.8-7.7) K/mm3 Sodium 140 (137-145) mmol/L Potassium 4.3 (3.6-5.0) mmol/L Chloride 103.8 (98-107) mmol/L Carbon Dioxide 22 (22-30) mmol/L Anion Gap 19 mmol/L BUN 9 (7-17) mg/dL Creatinine 0.8 (0.6-1.2) mg/dL Estimated GFR > 60 ml/min BUN/Creatinine Ratio 11 % Glucose 95 (65-100) mg/dL Calcium 9.6 (8.4-10.2) mg/dL Total Bilirubin < 0.20 (0.1-1.2) mg/dL AST 16 (5-40) units/L ALT 15 (7-56) units/L Alkaline Phosphatase 98 (35-129) units/L Troponin T < 0.010 (0.00-0.029) ng/mL Total Protein 7.2 (6.3-8.2) g/dL Albumin 4.1 (3.9-5) g/dL Albumin/Globulin Ratio 1.3 % - Radiology Data Radiology results: report reviewed [facility] [address] [place] [address] XRay Report Signed Patient: KD CARMONA MR# : [id number] : 1965 Acct:[id number] Age/Sex: 56 / F ADM Date: 08/30/21 Loc: ED Attending Dr: Ordering Physician: AYALA JOHNSON Date of Service: 08/30/21 Procedure(s): XR chest routine 2V Accession Number(s): [id number] cc: AYALA JOHNSON Fluoro Time In Minutes: CHEST 2 VIEWS INDICATION: sob,cough and rales. COMPARISON: 11/07/2019 FINDINGS: Support devices: None. Heart: Within normal limits. Lungs/pleura: No acute air space or interstitial disease. Bibasilar airspace opacities or atelectatic changes have resolved. No pneumothorax. Additional findings: None. IMPRESSION: No acute findings. Signer Name: Peter Asotrga Jr, MD Signed: 08/30/2021 8:29 AM Workstation Name: [id number] Transcribed By: TTR Dictated By: PETER ASTORGA JR, MD Electronically Authenticated By: PETER ASTORGA JR, MD Signed Date/Time: 08/30/21828 DD/ 7 TD/TT: Print Cancel - Medical Decision Making 56-year-old -[place] female presents to the emergency room reporting she has been having chest pain cough chest congestion nausea diarrhea and body aches for the last 2 days. Patient states that she is vaccinated. Reports that she is concerned for pneumonia. Patient states that she has had Covid in the past. She has a past medical history of diabetes hypertension asthma fibromyalgia and arthritis. She states she has been using steam and taking tea lemon and tierra. States her last menstrual period is in menopause. She has had a cholecystectomy. Primary care provider is Dr. Kiran Dixon. She has not taken any Tylenol or ibuprofen or qqdy-kux-vloekwd cold meds. Critical care attestation.: If time is entered above; I have spent that time in minutes in the direct care of this critically ill patient, excluding procedure time. ED Disposition Clinical Impression: Chest pain, unspecified, Viral illness, Suspected COVID-19 virus infection Disposition: HOME / SELF CARE / HOMELESS Is pt being admited?: No Does the pt Need Aspirin: No Condition: Stable Instructions: Nonspecific Chest Pain, Adult, COVID-19 Frequently Asked Questions, COVID-19: How to Protect Yourself and Others - CDC, Prevent the Spread of COVID-19 if You Are Sick - [facility] Additional Instructions: All labs are within normal limits chest x-ray is negative for any pneumonia or abnormalities. Recommend taking gbma-jqp-vojikwn cough medication Tylenol for p ain. Increase your fluid intake. Recommend Covid testing. Your symptoms appear most consistent with a nonspecific viral syndrome. However, given this current pandemic, COVID-19 is in the differential of possibilities. Despite your previous negative COVID-19 test, I do recommend repeat outpatient Covid 19 testing. In the meantime, isolate/quarantine yourself and stay away from anyone who is elderly, immunocompromised or chronically ill. You can use ibuprofen every 6-8 hours and Tylenol every 4-8 hours, using the dosing on the back of the bottle, as needed for any fever or body aches. Return to the emergency department with any worsening of your symptoms, development of chest pain or shortness of breath, or with any acute distress. Referrals: KIRAN DIXON MD [Primary Care Provider] - 3-5 Days Forms: Work/School Release Form(ED) Time of Disposition: 09:43
--- NOTE | 2021-08-30 08:33 | XRay Report ---
CHEST 2 VIEWS INDICATION: sob,cough and rales. COMPARISON: 11/07/2019 FINDINGS: Support devices: None. Heart: Within normal limits. Lungs/pleura: No acute air space or interstitial disease. Bibasilar airspace opacities or atelectatic changes have resolved. No pneumothorax. Additional findings: None. IMPRESSION: No acute findings. Signer Name: Peter Astorga Jr, MD Signed: 08/30/2021 8:29 AM Workstation Name: [id number]
[2021-08-30 08:59] LABS: Basophils % (Auto) 0.6 % (0.0-1.8); Eosinophils # (Auto) 0.3 K/mm3 (0.0-0.4); Eosinophils % (Auto) 4.9 % (0.0-4.3); Lymphocytes # (Auto) 1.1 K/mm3 (1.2-5.4); Lymphocytes % (Auto) 18.4 % (13.4-35.0); Mean Corpuscular HGB Conc 31 % (30-34); Mean Corpuscular Volume 86 fl (79-97); Monocytes # (Auto) 0.7 K/mm3 (0.0-0.8); Platelet Count 261 K/mm3 (140-440); Red Blood Count 5.14 M/mm3 (3.65-5.03)
[2021-08-30 09:00] LABS: Hematocrit 44.1 % (30.3-42.9); Hemoglobin 13.6 gm/dl (10.1-14.3)
[2021-08-30 09:23] LABS: Alanine Aminotransferase 15 units/L (7-56); Albumin 4.1 g/dL (3.9-5); BUN/Creatinine Ratio 11; Blood Urea Nitrogen 9 mg/dL (7-17); Calcium 9.6 mg/dL (8.4-10.2); Hemolysis Index 3
--- NOTE | 2021-08-31 12:04 | Electrocardiograph Report ---
[facility] Test Date: 2021-08-30 Test Time: 07:29:57 Pat Name: KD CARMONA Department: Room: Gender: F [employer]: REZA : 1965 Requested By: WOODROW VAUGHN Order Number: [id number] Reading MD: Anayeli Portillo Measurements Intervals [place] Rate: 84 P: 8 UT: 116 QRS: 28 QRSD: 82 T: 3 QT: 360 QTc: 427 Interpretive Statements Sinus rhythm No previous ECG available for comparison Electronically Signed On 08-31-2021 12:04:16 EST by Anayeli Portillo
== END 2021-08-30 09:53 | disposition home or self-care (01) ==
LOC: ED 06:53
DX: R07.9 Chest pain, unspecified (principal); B34.9 Viral infection, unspecified; Z20.822 Contact with and (suspected) exposure to COVID-19
CPT/HCPCS: 36415; 71046; 80053; 84484; 85025; 93005; 99283